=== PATIENT | female | born 1955 | race Caucasian/White ===

== ENCOUNTER → 2022-08-24 15:27 | Outpatient (BNVA) | payer OTHER, SELFPAY | PROVIDERS: Visit Provider Physician Assistant | DX: S39.012A Strain of muscle, fascia and tendon of lower back, initial encounter (principal); X50.0XXA Overexertion from strenuous movement or load, initial encounter | CPT/HCPCS: 99203 ==

== ENCOUNTER → 2022-09-08 14:32 | Outpatient (BNVA) | payer OTHER, SELFPAY | PROVIDERS: Visit Provider Physician Assistant | DX: S39.012D Strain of muscle, fascia and tendon of lower back, subsequent encounter (principal); X58.XXXD Exposure to other specified factors, subsequent encounter; M79.604 Pain in right leg | CPT/HCPCS: 99213 ==

== ENCOUNTER → 2022-09-29 09:13 | Outpatient (BNVA) | payer OTHER, SELFPAY | PROVIDERS: Visit Provider Physician Assistant | DX: S39.012D Strain of muscle, fascia and tendon of lower back, subsequent encounter (principal); X58.XXXD Exposure to other specified factors, subsequent encounter; R53.1 Weakness | CPT/HCPCS: 99213 ==

== ENCOUNTER → 2022-10-20 14:02 | Outpatient (BNVA) | payer OTHER, SELFPAY | PROVIDERS: Visit Provider Physician Assistant | DX: S39.012D Strain of muscle, fascia and tendon of lower back, subsequent encounter (principal); X50.0XXD Overexertion from strenuous movement or load, subsequent encounter; R53.1 Weakness | CPT/HCPCS: 99213 ==

== ENCOUNTER → 2022-11-17 14:04 | Outpatient (BNVA) | payer OTHER, SELFPAY | PROVIDERS: Visit Provider Physician Assistant | DX: S39.012D Strain of muscle, fascia and tendon of lower back, subsequent encounter (principal); X50.0XXD Overexertion from strenuous movement or load, subsequent encounter | CPT/HCPCS: 99213 ==

== ENCOUNTER → 2023-11-01 13:14 | Outpatient (BNVA) | payer OTHER, SELFPAY | PROVIDERS: Visit Provider Physician Assistant Medical | DX: S39.012A Strain of muscle, fascia and tendon of lower back, initial encounter (principal); S63.591A Other specified sprain of right wrist, initial encounter; X50.1XXA Overexertion from prolonged static or awkward postures, initial encounter | CPT/HCPCS: 29125; 99202 ==

== ENCOUNTER → 2023-11-08 10:00 | Outpatient (BNVA) | payer OTHER, SELFPAY | PROVIDERS: Visit Provider Physician Assistant | DX: S39.012A Strain of muscle, fascia and tendon of lower back, initial encounter (principal); S63.511A Sprain of carpal joint of right wrist, initial encounter; X58.XXXA Exposure to other specified factors, initial encounter | CPT/HCPCS: 99213 ==

== ENCOUNTER → 2023-11-28 13:30 | Outpatient (BNVA) | payer OTHER, SELFPAY | PROVIDERS: Visit Provider Physician Assistant Medical | DX: S39.012A Strain of muscle, fascia and tendon of lower back, initial encounter (principal); S63.591A Other specified sprain of right wrist, initial encounter; X50.1XXA Overexertion from prolonged static or awkward postures, initial encounter | CPT/HCPCS: 99213 ==

== ENCOUNTER → 2024-06-30 09:48 | Outpatient (BNVA) | payer OTHER, SELFPAY | PROVIDERS: Visit Provider Physician Assistant Medical | DX: S46.912A Strain of unspecified muscle, fascia and tendon at shoulder and upper arm level, left arm, initial encounter (principal); X50.3XXA Overexertion from repetitive movements, initial encounter | CPT/HCPCS: 73030; 99203 ==

== ENCOUNTER → 2024-07-18 13:59 | Outpatient (BNVA) | payer OTHER, SELFPAY | PROVIDERS: Visit Provider Physician Assistant Medical | DX: M24.812 Other specific joint derangements of left shoulder, not elsewhere classified (principal); M70.812 Other soft tissue disorders related to use, overuse and pressure, left shoulder | CPT/HCPCS: 99213 ==

== ENCOUNTER → 2024-08-22 13:43 | Outpatient (BNVA) | payer OTHER, SELFPAY | PROVIDERS: Visit Provider Physician Assistant Medical | DX: M24.812 Other specific joint derangements of left shoulder, not elsewhere classified (principal); M70.812 Other soft tissue disorders related to use, overuse and pressure, left shoulder | CPT/HCPCS: 99213 ==

== ENCOUNTER 2024-09-09 09:57 | Outpatient (REF) | payer OTHER, SELFPAY ==
--- NOTE | ~2024-09-09 | MR_ITS ---
CLINICAL HISTORY: LEFT SHOULDER DERANGEMENT MR left shoulder without gadolinium Comparison: None Findings: No acute fracture or pathologic bone lesion. Mild glenohumeral and moderate acromioclavicular joint osteoarthritis. Type II acromion. No joint effusion. Mild T2 signal elevation diffusely throughout the supraspinatus and infraspinatus tendons at the humeral insertion site extending to the musculotendinous junction, indicating tendinopathy. Superimposed low-grade partial-thickness intrasubstance, bursal surface and articular surface tears of the anterior, mid, and posterior supraspinatus as well as the anterior infraspinatus tendon at the humeral insertion site. Subscapularis and teres minor tendons are intact. No rotator cuff atrophy. The long head of biceps is intact. Degenerative fraying of the glenoid labrum. IMPRESSION: 1. Supraspinatus and infraspinatus tendinopathy with superimposed low-grade tears. No full-thickness rotator cuff tear. 2. Acromioclavicular and glenohumeral joint osteoarthritis. Degenerative fraying of the glenoid labrum. This document has been electronically signed by: Adam Drummond MD on 09/10/2024 14:44:41
--- OUTSIDE RECORDS SUMMARY | 2024-09-09 11:30 | XMS_ITS | Data Portability ---
Author Organization [facility] Address [address] [place] [address] Care Team Providers Care Personnel Adviser Name Role Phone CAROLINA CERNA REHAB Physical Therapist KERLINE MICHAELS Junior Project Coordinator AMADEO ORTEZ Refinery Operator Visbreaking [phone] KIMBERLY LAM Technical Sales Consultant ELVIS ADLER Profile Saw Setup Operator BLANK GALVIN Sports Medicine RILEY DANIEL Primary Care Provider PRANEETH IYER Marksmanship Instructor Assessment Encounter Date Assessment Date Assessment LastModified by Organization Details LastModified Time 08/12/2024 08/12/2024 We reviewed your chronic medical conditions and updated your plan for management. Please review instructions below. We have discussed your personal goals and discussed how to reach your goals. Please reach out to us via the Portal or phone if you have questions about your chronic conditions or if you or your caregivers require assistance in meeting your goals. Please visit our website [email or web address] for more patient resources. As part of your care plan, we will help coordinate your ongoing medical needs, arrange for durable medical equipment, renew prescriptions and necessary prior authorizations, facilitate getting referrals and collaborating with specialist, referrals for VNA services. CCM discussed and signed. General Health Maintenance Did not receive flu vaccine this year, possibly contributing to recent viral illness. - Recommend flu vaccination in future seasons. Follow-up Follow-up post-eye surgery to discuss diabetes management and further interventions. - Schedule follow-up appointment post-eye surgery to initiate Ozempic and reassess diabetes management. Not available 08/12/2024 13:44:03 08/16/2024 08/16/2024 flu positive > 1.5 week ago with ongoing cough. Rule out post-viral PNA. Not available 08/16/2024 12:17:24 Plan of Treatment Reminders Order Date Submit Date Provider Last Modified By Organization Details Last Modified Time Details Appointments Medica l Manage ment 15 2024 03:00P M RILEY DANIEL, DO Not available Not available Not available [facility] t-60 2024 11:00A M Rupinder Sanchezil, RDN Not available Not available Not available Follow Up, 2024 04:30P M RILEY DANIEL, DO Not available Not available Not available Mammog mejia, Screen ing 2024 03:30P M [facility] Mammography Not available Not available Not available LAB Follow -Up 2024 10:00A M [facility] Lab Not available Not available Not available Lynette ss Visit 2024 11:00A M RILEY ADNIEL, DO Not available Not available Not available Lab microa lbumin /creat inine, ratio panel, urine 2024 [email or web address] [place] [address] Lab, [address] [place], [address], 08/25/2024 15:28:39 HbA1c (hemog lobin A1c), blood 2023 025 [facility], [address] [place], [address], 07/04/2024 12:22:39 Referral nutrit ionist /dieti true referr al - T2DM. Strugg ling with weight gain. 2024 025 [facility], Nutrition ([place]) , [address] [place], [address], 08/06/2024 10:28:28 Procedures None record ed. Surgeries None record ed. Imaging XR, chest - flu positi ve > 1 week ago with ongoin g cough. Rule out post-v iral PNA [address] (Imaging), [address], [place], [address], 08/12/2024 13:23:22 Medication Orders doxycy russo hyclat e 100 mg capsul e 2024 025 MEGHANN Melchor ([facility]), [address] [place], [id number], 08/16/2024 10:58:36 albute rol sulfat e HFA 90 mcg/ac tuatio n aeroso l inhale r 2024 025 [facility] [address] [facility] [place] [id number], 08/16/2024 10:58:34 FreeSt yle Lite Strips 2023 024 MEGHANN Melchor ([facility]), [address] [place], [id number], 12/31/2023 11:05:13 Alcoho l Wipes 2023 024 MEGHANN Melchor ([facility]), [address] [facility] [place] [id number], 12/31/2023 11:05:15 metfor min ER 500 mg tablet ,exten ded releas e 24 hr 2023 024 MEGHANN [facility]chor ([facility] [address] [place], [id number], 12/21/2023 16:39:03 Patient TargetsNo targets recorded. Patient Instructions Encounter Date Encounter Id Patient Instructions Last Modified By Organization Details Last Modified Time 12/21/2023 [id number] After a discussi on of treatment options, which included consideration of best practices, patient preferences, and the patient? s individual lifestyle and treatment goals, as well as consideration and attempted mitigation of any barriers to meeting the patient? s goals, the? ? ?above treatment plan and objectives were adopted: bgreen Not available 12/22/2023 08:00:50 08/12/2024 [id number] CCM: The provide r and patient discussed the Chronic Care Management program, including the services provided, and any fees associated with them. 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 Struggling with weight gain. T2DM. Struggling with weight gain. Referring Physician: Riley Daniel, Family Medicine, Encounter Date: 07/07/2024 Results Created Date Observation Date Name Description Value Unit Range Abnormal Flag Note LastModifiedBy Organization Detail LastModifiedTime 07/04/1907/04/2024 CBC WBC 7.19 K/? ? ?L 3.98-1 0.04 Not Available [address], [address], 07/04/2024 10:27:26 07/04/19 25 07/04/2024 CBC RBC 4.35 M/? ? ?L 3.93-5 .22 Not Available [address], [address], 07/04/2024 10:27:26 07/04/19 25 07/04/2024 CBC HGB 14.3 g/dL 11.2-1 5.7 Not Available [address], [address], 07/04/2024 10:27:26 07/04/19 25 07/04/2024 CBC HCT 43.3 % 34.1-4 4.9 Not Available [address], [address], 07/04/2024 10:27:26 07/04/19 25 07/04/2024 CBC MCV 99.5 fL 79.4-9 4.8 high Not Available [address], [address], 07/04/2024 10:27:26 07/04/19 25 07/04/2024 CBC MCH 32.9 pg 25.6-3 2.2 high Not Available [address], [address], 07/04/2024 10:27:26 07/04/19 25 07/04/2024 CBC MCHC 33.0 g/dL 32.2-3 5.5 Not Available [address], [address], 07/04/2024 10:27:26 07/04/19 25 07/04/2024 CBC plt 201 K/? ? ?L 182-36 9 Not Available [address], [address], 07/04/2024 10:27:26 07/04/19 25 07/04/2024 CBC MPV 12.0 fL 9.4-12 .3 Not Available [address], [address], 07/04/2024 10:27:26 07/04/19 25 07/04/2024 CBC neut% 56.5 % 34.0-7 1.1 Not Available [address], [address], 07/04/2024 10:27:26 07/04/19 25 07/04/2024 CBC neut# 4.06 1.56-6 .13 Not Available [address], [address], 07/04/2024 10:27:26 07/04/19 25 07/04/2024 CBC lymph % 31.4 % 19.3-5 1.7 Not Available [address], [address], 07/04/2024 10:27:26 07/04/19 25 07/04/2024 CBC lymph # 2.26 K/? ? ?L 1.18-3 .74 Not Available [address], [address], 07/04/2024 10:27:26 07/04/1907/04/2024 CBC mono% 7.8 % 4.7-12 .5 Not Available [address], [address], 07/04/2024 10:27:26 07/04/1907/04/2024 CBC mono# 0.56 0.24-0 .56 Not Available [address], [address], 07/04/2024 10:27:26 07/04/1907/04/2024 CBC eo% 2.9 % 0.7-5. 8 Not Available [address], [address], 07/04/2024 10:27:26 07/04/1907/04/2024 CBC eo# 0.21 0.04-0 .36 Not Available [address], [address], 07/04/2024 10:27:26 07/04/19 25 07/04/2024 CBC baso% 1.1 % 0.1-1. 2 Not Available [address], [address], 07/04/2024 10:27:26 07/04/1907/04/2024 CBC baso# 0.08 0.00-0 .08 Not Available [address], [address], 07/04/2024 10:27:26 07/04/19 25 07/04/2024 CBC RDW-CV 12.7 % 11.7-1 4.4 Not Available [address], [address], 07/04/2024 10:27:26 07/04/1907/04/2024 CBC Ig% 0.300 % 0.000- 1.500 Ig % >0.5 Indic ates possi ble Left Shift Not Available [address], [address], 07/04/2024 10:27:26 07/04/19 25 07/04/2024 CBC Ig# 0.020 0.000- 0.093 Not Available [address], [address], 07/04/2024 10:27:26 07/04/19 25 07/04/2024 CBC NRBC% 0.0 % 0.0-0. 2 Not Available [address], [address], 07/04/2024 10:27:26 07/04/19 25 07/04/2024 CBC NRBC# 0.000 0.000- 0.012 Not Available [address], [address], 07/04/2024 10:27:26 07/04/19 25 07/04/2024 COMP. METAB OLIC PANEL glucose 145 mg/dL 70-100 high Not Available [address], [address], 07/04/2024 11:14:57 07/04/19 25 07/04/2024 COMP. METAB OLIC PANEL BUN 16 mg/dL 7-18 Not Available [address], [address], 07/04/2024 11:14:57 07/04/19 25 07/04/2024 COMP. METAB OLIC PANEL creatinine 0.8 mg/dL 0.8-1. 3 Not Available [address], [address], 07/04/2024 11:14:57 07/04/19 25 07/04/2024 COMP. METAB OLIC PANEL B/C 20.0 ratio Not Available [address], [address], 07/04/2024 11:14:57 07/04/19 25 07/04/2024 COMP. METAB OLIC PANEL GFR >=60ML /MIN mL/mi n normal >=60m L/min - Belia l or midly reduc ed <60mL /min- Decre ased kidne y funct ion <15mL /min - Kidne y failu re [facility] calcu lates estim ated Glome rular Filtr ation Rate (eGFR ) using the Chron ic Kidne y Disea se Epide miolo gy Colla borat ion (CKD- EPI) Equat ion (Inke r et. al 2020) as recom belkis d by the Natio nal Kidne y Found ation . eGFR is based on age, serum creat inine , and sex. CKD-E PI does not calcu late eGFR by race, does not apply to child jakub (age <18 years ), and shoul d not be used in pregn johnnie. Not Available [address], [address], 07/04/2024 11:14:57 07/04/19 25 07/04/2024 COMP. METAB OLIC PANEL sodium 143 mmol/ L 136-14 5 Not Available [address], [address], 07/04/2024 11:14:57 07/04/19 25 07/04/2024 COMP. METAB OLIC PANEL potassium 4.7 mmol/ L 3.5-5. 1 Not Available [address], [address], 07/04/2024 11:14:57 07/04/19 25 07/04/2024 COMP. METAB OLIC PANEL chloride 104 mmol/ L 96-107 Not Available [address], [address], 07/04/2024 11:14:57 07/04/19 25 07/04/2024 COMP. METAB OLIC PANEL anion gap 14.0 5.0-15 .0 Not Available [address], [address], 07/04/2024 11:14:57 07/04/19 25 07/04/2024 COMP. METAB OLIC PANEL CO2 25 mmol/ L 21-32 Not Available [address], [address], 07/04/2024 11:14:57 07/04/19 25 07/04/2024 COMP. METAB OLIC PANEL calcium 8.8 mg/dL 8.5-10 .3 Not Available [address], [address], 07/04/2024 11:14:57 07/04/19 25 07/04/2024 COMP. METAB OLIC PANEL total protein 7.1 g/dL 6.4-8. 2 Not Available [address], [address], 07/04/2024 11:14:57 07/04/19 25 07/04/2024 COMP. METAB OLIC PANEL albumin 3.8 g/dL 3.4-5. 0 Not Available [address], [address], 07/04/2024 11:14:57 07/04/19 25 07/04/2024 COMP. METAB OLIC PANEL globulin 3.3 g/dL Not Available [address], [address], 07/04/2024 11:14:57 07/04/19 25 07/04/2024 COMP. METAB OLIC PANEL A/G 1.2 ratio 0.8-2. 0 Not Available [address], [address], 07/04/2024 11:14:57 07/04/19 25 07/04/2024 COMP. METAB OLIC PANEL total bilirubin 0.40 mg/dL 0.00-1 .00 Not Available [address], [address], 07/04/2024 11:14:57 07/04/19 25 07/04/2024 COMP. METAB OLIC PANEL AST 17 U/L 0-37 Not Available [address], [address], 07/04/2024 11:14:57 07/04/19 25 07/04/2024 COMP. METAB OLIC PANEL ALT 33 U/L 6-63 Not Available [address], [address], 07/04/2024 11:14:57 07/04/19 25 07/04/2024 COMP. METAB OLIC PANEL alk. phos. 57 U/L 50-136 Not Available [address], [address], 07/04/2024 11:14:57 07/04/19 25 07/04/2024 LIPID PANEL cholesterol 183 mg/dL <200 mg/dl Roland able 200-2 39 mg/dl Borde rline High >240 mg/dl High Not Available [address], [address], 07/04/2024 11:14:57 07/04/1907/04/2024 LIPID PANEL triglyceride s 183 mg/dL <150 mg/dL Belia l 150-1 99 mg/dL Borde rline High 200-4 99 mg/dL High >500 mg/dL Very High Not Available [address], [address], 07/04/2024 11:14:57 07/04/1907/04/2024 LIPID PANEL direct HDL 48 mg/dL <40 mg/dl - Major Risk for CHD >60 mg/dl - Negat francisco Risk for CHD Not Available [address], [address], 07/04/2024 11:14:57 07/04/19 25 07/04/2024 LDL - CALCU LATED LDL - calculated 98 RISK CATEG ORY LDL GOAL _ CHD or CHD Risk Equiv alent s <100 mg/dl (10-y ear risk >20%) 2+ Risk Facto rs <130 mg/dl (10-y ear risk <= 20%) 0-1 Risk Facto r? <160 mg/dl ? Almos t all peopl e with 0-1 risk facto r have a 10 year risk <10%, thus 10 year risk asses ment in peopl e with 0-1 risk facto r is not neces alexsandra. Not Available [address], [address], 07/04/2024 11:14:58 07/04/19 25 07/04/2024 HGB A1C hemoglobin A1C 6.0 % 4.8-6. 0 Goal: <7% in Patie nts with Diabe jacky An A1c betwe en 5.7-6 .4% is ident ified as pre-d iabet es and sugge sts risk for progr essio n to diabe jacky Two a1c value s of 6.5% or highe r is consi stent with a diagn osis of diabe jacky but may need furth er confi rmati on Not Available [address], [address], 07/04/2024 12:22:39 07/04/19 25 07/04/2024 HGB A1C estimated average glucose 125.5 mg/dL Not Available [address], [address], 07/04/2024 12:22:39 08/12/19 25 08/12/2024 XR, chest CLINIC AL HISTOR Y: Cough. TECHNI QUE: Fronta l view and latera l view of the chest obtain ed. COMPAR DON: November 16, 2015 FINDIN GS: The heart is normal in size and config uratio n.Ther e is no hilar or medias tinal enlarg ement. There is no focal lung consol idatio n or infilt rate. The bony thorax is intact . IMPRES SWAPNIL: No acute diseas e. Readtete g Physic cindy: Jayesh Kirkpatrick [address] (Imaging) [address] , [place], [address], 09/09/2024 08:29:59 Result Notes None recorded. Problems Name Problem SNOMED Code Status Onset Date Resolution Date Notes Provider Name and Address Organization Details Recorded Time Joint pain 20798387 Active 2017 Tanika Delacruz NP [address] [place], [address] , [facility] 8 08:17:43 Osteoarthr itis 116065428 Active 2018 Chantal Parmar MA [facility] 9 08:20:18 Type 2 diabetes mellitus 64981770 Active 2023 Tanika Delacruz NP [address] [place] [address], [address] , [facility] 4 16:34:30 Dyspnea 767973105 Completed 200207/25/2012 Not Available [facility] 3 03:10:02 Calcific tendinitis of shoulder 46463631 Completed 200207/25/2012 Not Available [facility] 3 03:10:02 Acute cystitis 72151148 Completed 200307/25/2012 Not Available [facility] 3 03:10:02 Allergic rhinitis 24925317 Completed 200107/25/2012 Not Available [facility] 3 03:10:02 Acute pharyngiti s 582882189 Completed 200107/25/2012 Not Available [facility] 3 03:10:02 Glucose level outside reference range 189604023 Completed 200407/25/2012 Not Available [facility] 3 03:10:02 Dizziness 441693005 Completed 200407/25/2012 Not Available [facility] 3 03:10:02 Bacterial pneumonia 05382408 Completed 200707/25/2012 Not Available [facility] 3 03:10:02 Hypermetro afia 60985642 Completed 200507/25/2012 Not Available [facility] 3 03:10:02 Pain in throat 183066240 Completed 200607/25/2012 Not Available [facility] 3 03:10:02 Pneumonia 769460835 Completed 200207/25/2012 Not Available [facility] 3 03:10:02 Joint pain 87771242 Completed 200207/25/2012 Tanika Delacruz NP [address] [place] [address], [address] , [facility] 8 08:17:43 Acute maxillary sinusitis 01146924 Completed 200107/25/2012 Not Available [facility] 3 03:10:02 Transient insomnia 639012975 Completed 200707/25/2012 Not Available [facility] 3 03:10:02 Borderline glaucoma Completed 200507/25/2012 Not Available [facility] 3 03:10:02 Acute bronchitis 04403652 Completed 200207/25/2012 Not Available [facility] 3 03:10:02 Malaise and fatigue 031094167 Completed 200207/25/2012 Not Available [facility] 3 03:10:02 Inflammato ry disorder of extremity 596660848 Completed 200007/25/2012 Not Available [facility] 3 03:10:02 Disorder of tendon of shoulder region 31879944 Completed 200207/25/2012 Not Available [facility] 3 03:10:02 Cough 87237331 Completed 200107/25/2012 Not Available [facility] 3 03:10:02 Plantar fasciitis 816603717 Completed 200007/25/2012 Not Available [facility] 3 03:10:02 Syncope and collapse 892323562 Completed 200707/25/2012 Not Available [facility] 3 03:10:02 Joint pain in ankle and foot Completed 200307/25/2012 Not Available [facility] 3 03:10:02 Obesity 317761758 Active 2007 Elvis Adler MD [address] [place] [address], [address] , [facility] 6 15:23:56 Finding by method 839304912 Completed 200407/25/2012 Not Available [facility] 3 03:10:02 Common cold 91175247 Completed 200307/25/2012 Not Available [facility] 3 03:10:02 Staphyloco ccal infectious disease 18563874 Completed 200607/25/2012 Not Available [facility] 3 03:10:02 Abnormal weight loss 481787798 Completed 200707/25/2012 Not Available [facility] 3 03:10:02 Insect bite to trunk - nonvenomou s 697242075 Completed 200707/25/2012 Not Available [facility] 3 03:10:02 Insect bite, nonvenomou s, of shoulder 876864569 Completed 07/25/2012 Not Available [facility] 3 03:10:02 Low back pain 410697084 Completed 200007/25/2012 Not Available [facility] 3 03:10:02 Hypothyroi dism 84061043 Active 2002 Elvis Adler MD [address] [place] [address], [address] , [facility] 6 15:23:56 Streptococ anna sore throat 90063625 Completed 200307/25/2012 Not Available [facility] 3 03:10:02 Pain in limb 60928759 Completed 200307/25/2012 Not Available [facility] 3 03:10:02 Viral upper respirator y tract infection 806955297 Completed 200607/25/2012 Not Available [facility] 3 03:10:02 Notes:Some problems listed i n Documents: #[id number], #[id number] could not be added to this patient's chart. Please review these documents and add these problems to the patient's chart manually as needed. Problem Notes None recorded. Procedures Surgical History Date Name Laterality Status Provider Name and Address Organization Details Recorded Time 10/08/19 24 Trochanteric Bursa Injection completed Blank Galvin MD [address] [place] [address], [phone], [facility] 10/08/2023 16:17:42 01/11/20 23 Trochanteric Bursa Injection completed Blank Galvin MD [address] [place] [address], [address], [facility] 01/10/2023 16:12:59 12/16/19 23 Medicare Wellness Visit completed Ron Azul MA [facility] 12/15/2022 09:01:17 12/15/19 23 US Guided Knee Joint Injection completed Blank Galvin MD [address] [place] [address], [address], [facility] 12/14/2022 13:36:30 04/07/20 22 Tassoni - Colonoscopy completed Amadeo Ortez MD [address] [place] [address], [address], [facility] 04/07/2022 12:22:37 04/07/20 22 Tassoni - EGD completed Amadeo Ortez MD [address] [place] [address], [address], [facility] 04/07/2022 12:21:41 11/26/19 22 prevention-cardi ovascular risk reduction counseling completed Tanika Delacruz NP [address] [place] [address], [address], [facility] 11/25/2021 16:50:47 11/26/19 22 prevention-annua l alcohol misuse screening completed Tanika Delacruz NP [address] [place] [address], [address], [facility] 11/25/2021 16:50:50 08/08/19 22 15[address]: Therapeutic Exercise completed Shawna Parker, BROOK [address] [place] [address], [address], [facility] 08/08/2021 18:36:17 08/08/19 22 Treatment and Advice completed Shawna Parker, PT [address] [place], [address], [facility] 08/08/2021 18:33:10 08/05/19 22 Physical Activity Counselling completed Shawna Parker, PT [address] [place], [address], [facility] 08/05/2021 08:21:28 08/05/19 22 [address]: PT Eval Low Complexity completed Shawna Parker, PT [address] [place], [address], [facility] 08/05/2021 08:21:24 08/05/19 22 Treatment and Advice completed Shawna Parker, PT [address] [place], [address], [facility] 08/05/2021 16:39:59 08/26/19 21 prevention-cardi ovascular risk reduction counseling completed Ron Azul MA [facility] 08/26/2020 08:39:25 08/26/19 21 prevention-annua l alcohol misuse screening completed Ron Azul MA [facility] 08/26/2020 08:39:25 03/29/20 18 [address]61: Therapeutic Exercise completed Nelson Devi, PT [address] [place], [address], [facility] 04/03/2018 19:36:37 03/29/20 18 Treatment and Advice completed Nelson Devi, PT [address] [place], [address], [facility] 03/29/2018 17:09:53 03/22/20 18 [address]23: Therapeutic Exercise completed Nelson Devi, PT [address] [place], [address], [facility] 03/22/2018 15:37:32 03/22/20 18 Treatment and Advice completed Nelson Devi, PT [address] [place], [address], [facility] 03/22/2018 16:02:03 03/08/20 18 53619: Therapeutic Exercise completed Nelson Devi, PT [address] [place], [address], [facility] 03/08/2018 16:57:34 03/08/20 18 Treatment and Advice completed Nelson Devi, PT [address] [place], [address], [facility] 03/08/2018 16:59:44 03/01/20 18 [address]: Therapeutic Exercise completed Nelson Devi, PT [address] [place], [address], [facility] 03/04/2018 17:17:06 03/01/20 18 Treatment and Advice completed Nelson Devi, PT [address] [place], [address], [facility] 03/01/2018 16:41:51 02/20/20 18 Physical Activity Counselling completed Nelson Devi, PT [address] [place], [address], [facility] 02/19/2018 09:35:29 02/20/20 18 71951: PT Eval Low Complexity completed Nelson Devi, PT [address] [place], [address], [facility] 02/19/2018 09:35:29 02/20/20 18 Treatment and Advice completed Nelson Devi, PT [address] [place], [address], [facility] 02/19/2018 10:07:34 07/12/19 17 POC Strep Testing completed Lotus Howell MA [facility] 07/12/2016 11:14:53 06/22/20 15 Refraction completed Aviva Garcia MA [facility] 06/22/2015 16:17:57 Imaging Results Imaging Date Name Status LastModified by [facility] Details LastModified Time 08/12/2024 XR, chest completed [address] (Imaging) [address], [place], [address], 09/09/2024 08:29:59 Procedure Notes None recorded. Medical Equipment None Reported. Allergies Allergen ID Allergen Name Allergen Category Reaction Reaction Severity Criticality Documentation Date Start Date Code Code System Note Provider Name and Address Organization Details Recorded Time 535625 Roxicet medicatio n Not available Not available Not available 11/17/2022 89581 9 RxNorm think s it cause d her to go deaf Gonzalezjimi Azul MA [facility] 3 15:37:59 8644 Product containin g penicilli n (product) medicatio n rash Not available Not available 10/13/2008 89614 8001 SNOMED Not Available [facility] 1 06:05:20 Medications Name Sig Start Date Stop Date Status Note LastModified by Organization Details LastModified Time synthroid 75 mcg tabs 07/24 completed Not Available Not Available Not Available celecoxib 200 mg caps 07/24 completed Not Available Not Available Not Available lorazepam 0.5 mg tabs 07/24 completed Not Available Not Available Not Available doxycycli ne monohydra te 100 mg caps 08/26 completed Not Available Not Available Not Available celecoxib 200 mg capsule TK 1 C PO QD PRN 08/26 completed Not Available Not Available Not Available doxycycli ne hyclate 100 mg capsule TAKE 1 CAPSULE BY MOUTH TWICE DAILY FOR 7 DAYS active Not Available Not Available No t Available azithromy kathe 250 mg tablet Take 2 tablets (500 mg) by oral route once daily for 1 day then 1 tablet (250 mg) by oral route once daily for 4 days 05/02 completed Not Available Not Available Not Available ibuprofen 800 mg tablet TAKE ONE TABLET BY MOUTH THREE TIMES DAILY FOR 30 DAYS NEEDED 2012 active Not Available Not Available Not Avai lable Tubersol 5 tub. unit/0.1 mL intraderm al injection solution 2009 active Not Available Not Available Not Avai lable phentermi ne 15 mg capsule TAKE 1 CAPSULE BY MOUTH ONCE DAILY active Not Available Not Available No t Available topiramat e 25 mg tablet Take 1 tablet every day by oral route. 09/20 completed Not Available Not Available Not Available Cyclogyl 1 % eye drops INSTILL 1 DROP INTO AFFECTED EYE(S) 2X A DAY 11/17 completed Not Available Not Available Not Available phentermi ne 37.5 mg tablet TAKE 1 TABLET BY MOUTH EVERY DAY active Not Available Not Available No t Available melatonin 3 mg tablet Take 1 tablet every day by oral route at bedtime. 05/02 completed 05/02/16 dose was increade d to 5mg/jacqueline Not Available Not Available Not Available valacyclo vir 500 mg tablet TAKE 1 TABLET BY MOUTH THREE TIMES DAILY 06/15 completed Not Available Not Available Not Available Roxicet 5 mg-325 mg tablet Take 1-2 po q 6 hours prn 2012 active Not Available Not Available Not Avai lable levothyro xine 75 mcg tablet TAKE 1 TABLET BY MOUTH EVERY DAY active Not Available Not Available No t Available ketorolac 0.5 % eye drops PLACE 1 DROP INTO LEFT EYE THREE TIMES DAILY FOR 3 WEEKS FOLLOWIN G CATARACT SURGERY active Not Available Not Available No t Available meloxicam 7.5 mg tablet Take 1 tablet every day by oral route. active Not taking 08/12/24 PP Not Available Not Available Not Available diflunisa l 500 mg tablet Take 1 tablet every 12 hours by oral route. active 04/23/15 -rb Not Available Not Available Not Available prednisol one acetate 1 % eye drops,anita pension INSTILL 1 DROP IN LEFT EYE THREE TIMES DAILY FOR 3 WEEKS FOLLOWIN G CATARACT SURGERY active Not Available Not Available No t Available omeprazol e 10 mg capsule,d elayed release Take 2 capsules every day by oral route. active unsure of dose Not Available Not Available Not Available lorazepam 0.5 mg tablet TAKE 1 TABLET BY MOUTH EVERY DAY NEEDED active Not Available Not Available No t Available doxycycli ne monohydra te 100 mg capsule TK 1 C PO Q 12 H FOR 7 DAYS 08/26 completed Not Available Not Available Not Available lisinopri l 10 mg tablet TAKE 1 TABLET BY MOUTH EVERY DAY active Not Available Not Available No t Available prednison e 50 mg tablet TAKE 1 TABLET BY MOUTH DAILY. START 1 DAY BEFORE SURGERY THEN FOR 5 DAYS AFTER SURGERY active Not Available Not Available No t Available dorzolami de 22.3 mg-timolo l 6.8 mg/mL eye drops INSTILL 1 DROP IN BOTH EYES TWICE DAILY active Not Available Not Available No t Available ibuprofen 600 mg tablet Take 1 tablet 3 times a day by oral route. 08/10 completed Not Available Not Available Not Available albuterol sulfate HFA 90 mcg/actua tion aerosol inhaler INHALE 2 PUFFS BY MOUTH EVERY 4 TO 6 HOURS FOR 10 DAYS NEEDED active Not Available Not Available No t Available metformin ER 500 mg tablet,ex tended release 24 hr TAKE 1 TABLET BY MOUTH EVERY DAY FOR 7 DAYS THEN TAKE 2 TABLETS BY MOUTH EVERY DAY IN THE EVENING THEREAFT ER active Not Available Not Available No t Available metronida zole 0.75 % topical gel 08/26 completed Not Available Not Available Not Available naproxen 500 mg tablet TAKE 1 TABLET BY MOUTH TWICE DAILY active Not taking 08/12/24 PP Not Available Not Available Not Available cyclobenz aprine 5 mg tablet TAKE 1 TABLET BY MOUTH AT BEDTIME NEEDED FOR MUSCLE SPASM. DO NOT DRIVE OR OPERATE MACHINER Y FOR 8 HOURS AFTER TAKING THIS MEDICINE 12/20 completed Not Available Not Available Not Available Alcohol Prep Pads Use twice daily as directed for monitori ng glucose, Dx Code E11.9 active Not Available Not Available No t Available melatonin take 10mg daily active 09/01/22- takes 5 mg Not Available Not Available Not Available Naprosyn 06/19 completed 1-2 tabs po bid Not Available Not Available Not Available Celebrex 1 tab PO QD active pt cannot recall dosage Not Available Not Available Not Available metformin ER 500 mg 24 hr tablet,ex tended release (gastric retention ) TAKE 1 TABLET BY MOUTH EVERY DAY FOR 7 DAYS THEN TAKE 2 TABLETS BY MOUTH EVERY DAY IN THE EVENING THEREAFT ER 2023 active Not Available Not Available Not Avai lable FreeStyle Lite Strips Use twice daily as directed for monitori ng glucose, Dx Code E11.9 2023 active Not Available Not Available Not Avai lable diclofena c 1 % topical gel APPLY 2 GRAMS TOPICALL Y TO THE AFFECTED AREA FOUR TIMES DAILY 08/12 completed Not Available Not Available Not Available GaviLyte- G 236 gram-22.7 4 gram-6.74 gram-5.86 gram oral solution MIX AND DRINK UTD 11/02 completed Not Available Not Available Not Available Belviq 10 mg tablet TK 1 T PO BID 05/02 completed 05/02/16 pt states she is no longer taking/j d Not Available Not Available Not Available Virtussin AC 10 mg-100 mg/5 mL oral liquid Take 10 mL every 8 hours by oral route as needed. 05/02 completed Not Available Not Available Not Available Fluarix Quad 7259-9577 (PF) 60 mcg (15 mcg x 4)/0.5 mL IM syringe inject 0.5 millilit er intramus cularly 05/02 completed Not Available Not Available Not Available Afluria [id number] (PF) 45 mcg(15 mcg x 3)/0.5 mL intramusc ular syringe 08/10 completed Not Available Not Available Not Available Vitals Date Recorded Body height Body mass index (BMI) Body weight Oxygen saturation Oxygen saturation in Arterial blood by Pulse oximetry Heart rate Systolic blood pressure Diastolic blood pressure Provider Name and Address Organization Details Last Updated DateTime 4 162.56 cm 34.2 kg/m2 84516.2 8 g 97 % 97 % 61 /min 116 mm[Hg] 66 mm[Hg] Ron Azul [facility] 4 16:19:09 Date Recorded Heart rate Systolic blood pressure Diastolic blood pressure Provider Name and Address Organization Details Last Updated DateTime 12/31/2023 74 /min 154 mm[Hg] 96 mm[Hg] Amanda De Santiago CMA [facility] 12/31/2023 11:15:59 Date Recorded Body temperature Systolic blood pressure Diastolic blood pressure Provider Name and Address Organization Details Last Updated DateTime 12/31/2023 99.8 [degF] 142 mm[Hg] 95 mm[Hg] MALATHI Seymour [address] [place] [address], [id number], [facility] 12/31/2023 11:55:33 Date Recorded Body height Body mass index (BMI) Body weight Oxygen saturation Oxygen saturation in Arterial blood by Pulse oximetry Heart rate Systolic blood pressure Diastolic blood pressure Provider Name and Address Organization Details Last Updated DateTime 5 162.56 cm 34.8 kg/m2 46735.4 6 g 97 % 97 % 66 /min 110 mm[Hg] 70 mm[Hg] Kortney Justin [facility] 5 11:49:51 Date Recorded Body height Body mass index (BMI) Body weight Heart rate Oxygen saturation Oxygen saturation in Arterial blood by Pulse oximetry Body temperature Systolic blood pressure Diastolic blood pressure Provider Name and Address Organization Details Last Updated DateTime 5 162.56 cm 34.8 kg/m2 79281.2 5 g 59 /min 99 % 99 % 98 [degF] 126 mm[Hg] 66 mm[Hg] DELMI Hassan [facility] 5 11:43:17 Date Recorded Body height Oxygen saturation Oxygen saturation in Arterial blood by Pulse oximetry Heart rate Body temperature Systolic blood pressure Diastolic blood pressure Provider Name and Address Organization Details Last Updated DateTime 5 162.56 cm 98 % 98 % 68 /min 97.6 [degF] 102 mm[Hg] 60 mm[Hg] Soy Ricardo [facility] 5 10:40:52 Social History Question Answer Notes LastModified by Organizat ion Details LastModified Time Tobacco Smoking Status [facility] 16:40:50 Do You Have An Advance Directive? Yes Kerline Campbell, Information not available 05/20/2010 What Is Your Level Of Alcohol Consumption? None Information not available 09/01/2022 Do You Wear A Helmet When Biking? Yes Information not available 11/02/2017 What Is Your Level Of Caffeine Consumption? Occasional 1 Cup Coffee Daily Information not available 05/20/2010 How Much Tobacco Do You Chew? None [email or web address] Information not available 05/18/2011 Are You Currently Employed? Yes Information not available 11/25/2021 What Type Of Diet Are You Following? REGULAR Low Fat, No Bread, Sugar, Pasta Information not available 11/25/2021 Which Illicit Or Recreational Drugs Have You Used? None [email or web address] Information not available 08/06/2015 Do You Or Have You Ever Used E-cigarettes Or Vape? Never Used Electronic Cigarettes Information not available 07/24/2019 Education 4 Year College Informatio n not available 11/02/2017 What Is The Highest Grade Or Level Of School You Have Completed Or The Highest Degree You Have Received? [id number] Information not available 12/15/2022 What Is Your Occupation? [employer] [email or web address] Information not available 05/18/2011 Have There Been Any Changes To Your Family Or Social Situation? No Information not available 11/25/2021 How Many Days In The Past Year Have You Had A Heavy Drinking Consumption (4+ Female, 5+ Male)? 0 Information not available 05/02/2016 Are There Any Guns Present In Your Home? No [email or web address] Information not available 05/18/2011 Do You Use Insect Repellent Routinely? Yes Information not available 11/25/2021 Live Alone Or With Others? With Others [email or web address] Information not available 05/18/2011 Patient Has Health Care Proxy Signed And In Chart Yes [email or web address] Information not available 03/15/2023 CCM Consent Discussion 08/12/2024 [email or web address] Information not available 08/21/2024 Marital Status [email or web address] Information not available 05/18/2011 Mosquito Repellent Used Routinely No [email or web address] Information not available 05/18/2011 What Was The Date Of Your Most Recent Tobacco Screening? 07/07/2024 [email or web address] Information not available 07/07/2024 How Many Children Do You Have? 2 [email or web address] Information not available 05/18/2011 What Is Your Relationship Status? Information not available 11/25/2021 Do You Use Your Seat Belt Or Car Seat Routinely? Yes Information not available 11/25/2021 Seat Belts Used Routinely Yes [email or web address] Information not available 05/18/2011 Are You Sexually Active? Yes [email or web address] Information not available 05/18/2011 Smoke Alarm In Home Yes [email or web address] Information not available 05/18/2011 Do You Have Smoke And Carbon Monoxide Detectors In Your Home? Yes Information not available 11/25/2021 Are You Passively Exposed To Smoke? No Information not available 11/25/2021 Do You Or Have You Ever Used Smokeless Tobacco? Never Used Smokeless Tobacco Information not available 07/24/2019 How Much Tobacco Do You Smoke? No Information not available 07/24/2019 What Types Of Sporting Activities Do You Participate In? None Information not available 05/02/2016 General Stress Level High Due To Family Issues Information not available 08/26/2020 Do You Use Any Illicit Or Recreational Drugs? No Information not available 11/30/2022 Do You Use Sunscreen Routinely? Yes Information not available 12/15/2022 Do You Or Have You Ever Used Any Other Forms Of Tobacco Or Nicotine? No Information not available 06/17/2021 Sex: Female Functional Status Question Answer Note LastModified by Organization D etails LastModified Time What is your exercise level? Moderate Information not available 08/12/2024 Mental Status None recorded. Family History Relationship Description Onset Age of this Age Resolved Age Notes LastModified by Organization Details LastModified Time Father Malignant tumor of colon [email or web address] Not available 2015 14:52:13 Father Diabetes mellitus [email or web address] Not available 2015 14:52:13 Brother Malignant tumor of small intestine [email or web address] Not available 2015 14:52:13 Brother Diabetes mellitus [email or web address] Not available 2015 14:52:13 Brother Malignant neoplasm of skin [email or web address] Not available 2015 14:52:13 Sister Polyp of colon [email or web address] Not available 2015 14:52:13 Sister Malignant neoplasm of skin [email or web address] Not available 2015 14:52:13 Notes:colon CA - Dad and sev eral other more distant relatives Medical History Condition Response Hypothyroid Y Gynecological History Statement/Question Response Infertility Date of LMP Obstetrics History GPAL:G 0 P 0 0 0 0 Immunizations Vaccine Type Date Status Note Provider Nam e and Address Organization Details Recorded Time Td(adult) unspecified formulation 3 completed Not Available [facility] 05/17/2011 05:21:07 influenza, seasonal, intradermal, preservative free 3 completed Not Available [facility] 07/19/2019 02:34:58 influenza, unspecified formulation 0 completed Not Available [facility] 05/17/2011 05:22:41 influenza, unspecified formulation 5 completed [facility]/19[facility]2015 11:13:00 Influenza, split virus, quadrivalent, PF 8 completed Not Available [facility] 07/19/2019 02:23:00 Influenza, split virus, quadrivalent, preservative 6 [facility] 03/31/2016 08:06:25 Influenza, split virus, quadrivalent, preservative 7 [facility] 03/26/2017 08:31:47 Influenza, split virus, quadrivalent, PF 0 completed Neyda Vasquez MA [facility] 07/24/2019 16:38:21 Influenza, split virus, quadrivalent, PF 0 completed Brie Graham RN [facility] 05/24/2020 15:44:55 Influenza, split virus, quadrivalent, PF 1 [facility] 06/17/2021 16:03:30 COVID-19, mRNA, LNP-S, PF, 30 mcg/0.3 mL dose 1 [facility] 08/26/2020 09:28:36 COVID-19, mRNA, LNP-S, PF, 30 mcg/0.3 mL dose 1 completed Ron Azul MA [facility] 08/26/2020 09:29:14 Td (adult), 5 Lf tetanus toxoid, preservative free, adsorbed 3 completed Tanika Delacruz NP [address] [place] [address], [id number], [facility] 09/02/2022 09:58:56 Tdap 0 completed Not Available [facility] 07/19/2019 02:36:32 zoster recombinant 2 [facility] 11/18/2021 16:28:46 COVID-19, mRNA, LNP-S, PF, 30 mcg/0.3 mL dose 1 [facility] 11/25/2021 16:10:24 zoster recombinant 2 completed MARYAM Daniels, [facility] 09/01/2022 15:47:57 Past Encounters Encounter ID Performer Location Encounter Start Date Encounter Closed Date Diagnosis/Indication Diagnosis SNOMED-CT Code Diagnosis ICD10 Code Diagnosis Note [id number] Physical Therapy, [facility] [address] [place] [address] 08/28/2000 15:30:00 07/22/2008 02:02:29 [id number] , [facility], [address]ICE [address] [place] [address] 08/28/2000 14:30:00 07/22/2008 02:02:29 [id number] Physical Therapy, [address] [address] 10/09/2000 15:30:00 07/22/2008 02:02:29 [id number] Physical Therapy, [address] [address] 10/15/2000 16:00:00 07/22/2008 02:02:29 [id number] [facility], [address] [place] [address] 05/02/2001 16:00:00 07/22/2008 02:02:29 [id number] [facility], [address] [place] [address] 05/16/2001 16:00:00 07/22/2008 02:02:29 [id number] [facility], [address] [place] [address] 11/06/2001 15:45:00 07/22/2008 02:02:29 [id number] [facility], [address] [place] [address] 11/21/2001 15:45:00 07/22/2008 02:02:29 [id number] [facility], [address] [place] [address] 07/30/2002 09:19:22 07/22/2008 02:02:29 [id number] [facility], [address] [place] [address] 08/01/2002 11:15:58 07/22/2008 02:02:29 [id number] [facility], [address] [place] [address] 08/02/2002 15:02:07 07/22/2008 02:02:29 [id number] [facility], [address] [place] [address] 08/04/2002 10:11:08 07/22/2008 02:02:29 [id number] LAB - [facility] [address] [place] [address] 08/04/2002 10:50:50 07/22/2008 02:02:29 [id number] [facility], [address] [place] [address] 08/08/2002 10:14:44 07/22/2008 02:02:29 [id number] , [facility], [address] [place] [address] 08/15/2002 10:14:56 07/22/2008 02:02:29 [id number] [facility], [address] [place] [address] 11/01/2002 09:30:01 07/22/2008 02:02:29 [id number] Physical Therapy, [facility] [place] [address] 03/10/2003 15:59:36 03/10/2003 16:37:56 [id number] Physical Therapy, [facility] [address] 03/20/2003 16:03:40 03/20/2003 16:29:16 [id number] Physical Therapy, [facility] [address] 03/31/2003 16:30:52 04/01/2003 08:27:36 [id number] Physical Therapy, [facility] [place] [address] 04/21/2003 16:35:12 04/22/2003 08:03:37 [id number] [facility], OFFICE [address] [place] [address] 04/27/2003 16:33:11 04/29/2003 16:45:26 [id number] LAB - [facility] [address] 04/27/2003 00:00:00 07/22/2008 02:02:29 [id number] LAB - [facility] [address] 04/30/2003 08:07:07 04/30/2003 08:54:37 [id number] [facility], OFFICE [address] [place] [address] 04/30/2003 08:03:23 04/30/2003 16:39:46 [id number] SILVIA CHAO, OFFICE [address] [place] [id number] 6 05/01/2003 15:47:56 05/02/2003 10:55:12 [id number] LAB - [facility] [address] [place] [address] 04/30/2003 00:00:00 07/22/2008 02:02:29 [id number] Physical Therapy, [facility] [address] M[place]AM Lanza[address] 6 05/04/2003 16:01:47 05/04/2003 16:53:58 [id number] Physical Therapy, [facility] [address] M[place] Lanza62[address] 6 05/15/2003 15:57:05 05/15/2003 16:30:22 [id number] SILVIA CHAO, OFF[address] [place] [address] 05/22/2003 15:50:02 05/23/2003 10:48:00 [id number] LAB - [facility] [address] [place] [address] 05/22/2003 00:00:00 07/22/2008 02:02:29 [id number] LAB - [facility] [address] [place] [address] 06/29/2003 15:27:29 06/29/2003 15:30:41 [id number] SILVIA CHAO, OFFICE [address] [place] [address] 08/27/2003 09:47:18 08/27/2003 15:25:39 [id number] LAB - [facility] [address] [place] [address] 08/27/2003 00:00:00 07/22/2008 02:02:29 [id number] SILVIA CHAO, OFFICE [address] [place] [address] 11/03/2003 15:33:19 11/03/2003 18:05:25 [id number] LAB - [facility] [address] [place] [address] 11/03/2003 00:00:00 07/22/2008 02:02:29 [id number] SILVIA CHAO, OFFICE [address] [place] [address] 11/10/2003 15:38:36 11/10/2003 17:46:37 [id number] LAB - [facility] [address] [place] [address] 11/20/2003 16:38:20 11/20/2003 16:38:52 [id number] [facility], OFFICE [address] [place] [id number] 6 11/20/2003 15:41:14 11/20/2003 17:33:02 [id number] LAB - [facility] [address] 11/20/2003 00:00:00 07/22/2008 02:02:29 [id number] SILVIA CHAO, OFFICE [address] [place] [address] 01/16/2004 10:47:37 01/16/2004 11:40:25 [id number] LAB - [facility] [address] 6 01/16/2004 00:00:00 07/22/2008 02:02:29 [id number] LAB - [facility] [address] 04/14/2004 08:17:08 04/14/2004 08:17:27 [id number] [facility], OFFICE [address] [place] [address] 05/08/2004 09:59:15 05/08/2004 11:32:59 [id number] Physical Therapy, [facility] [address] 05/16/2004 17:00:48 05/18/2004 08:06:02 [id number] Physical Therapy, [facility] [address] 05/30/2004 16:54:29 05/31/2004 10:36:46 [id number] Physical Therapy, [facility] [address] 06/08/2004 17:32:14 06/13/2004 09:50:42 [id number] Physical Therapy, [facility] [address] 05/23/2004 17:04:45 07/22/2008 02:02:29 [id number] [facility] [facility], OFFICE [address] [place] [address] 06/20/2004 16:18:44 06/21/2004 17:11:05 [id number] Physical Therapy, [facility] MARYAM Zaldivar[address] 6 07/08/2004 16:30:22 07/11/2004 08:41:54 [id number] Physical Therapy, [facility] MARYAM Zaldivar[address] 6 07/18/2004 11:23:57 07/18/2004 14:23:27 [id number] Physical Therapy, [facility] MARYAM [id number] 6 07/25/2004 16:27:29 07/26/2004 08:26:03 [id number] Physical Therapy, [facility] MARYAM Zaldivar62[address] 6 08/01/2004 15:59:45 08/02/2004 09:20:05 [id number] Physical Therapy, [facility] MARYAM Zaldivar62[address] 6 08/05/2004 16:25:18 08/08/2004 08:15:48 [id number] Physical Therapy, [facility] MARYAM [id number] 6 08/08/2004 16:28:31 08/10/2004 16:10:08 [id number] Physical Therapy, [facility] MARYAM [id number] 6 08/12/2004 16:55:15 08/15/2004 08:11:10 [id number] Physical [facility], [facility] MARYAM [id number] 6 08/22/2004 17:02:29 08/24/2004 09:16:52 [id number] [facility] - [facility] MARYAM [id number] 6 11/03/2004 07:55:08 11/03/2004 07:55:37 [id number] [facility] - [facility] MARYAM [id number] 6 11/10/2004 15:49:17 11/10/2004 15:49:50 [id number] [facility] [address] 12/02/2004 16:08:32 12/05/2004 09:03:12 [id number] [facility] [place] [address] 12/02/2004 15:32:44 12/03/2004 13:08:43 [id number] [facility] - [facility] [address] 12/02/2004 00:00:00 07/22/2008 02:02:29 [id number] Radiology , [facility] [address] [place] [address] 01/25/2005 15:30:01 07/22/2008 02:02:29 [id number] [facility], OFFICE [address] M[place] [id number] 6 05/11/2005 16:37:13 07/22/2008 02:02:29 [id number] LAB - [facility] [address] [place] [address] 05/12/2005 15:54:26 05/12/2005 15:54:54 [id number] [facility], OFFICE [address] [place] [address] 08/22/2005 16:24:27 08/22/2005 17:13:45 [id number] [facility], OFFICE [address] [place] [address] 10/11/2005 10:46:05 10/11/2005 14:35:30 [id number] LAB - [facility] 70 [facility] [place] [address] 10/11/2005 00:00:00 07/22/2008 02:02:29 [id number] [facility], OFFICE [address] [facility] [place] [address] 11/07/2005 11:15:06 07/22/2008 02:02:29 [id number] Eye Care, [facility] Tarah [facility] [place] [address] 12/08/2005 17:16:59 07/22/2008 02:02:29 [id number] LAB - [facility] Tarah [facility] [place] [address] 01/19/2006 07:49:08 01/19/2006 07:49:16 [id number] Radiology , [facility] 70 [facility] [place] [address] 02/28/2006 15:09:53 07/22/2008 02:02:29 [id number] [facility], OFFICE [address] [facility] [place] [address] 11/05/2006 14:34:00 11/06/2006 10:25:46 [id number] LAB - [facility] Tarah [facility] [place] [address] 11/05/2006 15:31:17 11/05/2006 15:31:34 [id number] Radiology , [facility] [address] [place] [address] 05/02/2007 16:49:08 05/03/2007 08:42:55 [id number] [facility], OFFICE [address] [facility] [place] [address] 06/07/2007 15:30:16 07/22/2008 02:02:29 [id number] LAB - [facility] [address] 06/07/2007 00:00:00 07/22/2008 02:02:29 [id number] [facility], OFFICE [address] [facility] [place] [address] 07/12/2007 13:59:30 07/22/2008 02:02:29 [id number] LAB - [facility] [address] 07/12/2007 15:26:29 07/12/2007 15:26:46 [id number] [facility], OFFICE [address] [place] [address] 07/19/2007 15:31:45 07/22/2008 02:02:29 [id number] [facility], OFFICE [address] [place] [address] 08/16/2007 13:23:44 08/20/2007 08:06:54 [id number] [facility], OFFICE [address] [place] [address] 10/12/2007 11:21:46 07/22/2008 02:02:29 [id number] [facility], OFFICE [address] [place] [address] 12/09/2007 16:25:30 07/22/2008 02:02:29 [id number] [facility], OFFICE [address] [place] [address] 01/08/2008 16:21:14 07/22/2008 02:02:29 [id number] Eye Care, [address] [address] 01/27/2008 15:37:07 01/28/2008 06:54:22 [id number] [facility], OFFICE [address] [place] [address] 03/12/2008 16:05:11 07/22/2008 02:02:29 [id number] [facility] , [facility] [address] [place] [address] 06/06/2008 11:22:01 06/08/2008 09:23:45 [id number] LAB - [facility] [address] [place] [address] 07/16/2008 07:56:02 07/16/2008 07:56:07 [id number] , [facility], OFFICE [address] [facility] [place] [address] 10/13/2008 13:47:28 10/14/2008 11:34:28 [id number] , [facility], OFFICE [address] [place] [address] 01/25/2009 15:30:58 01/26/2009 11:13:29 [id number] , [facility], OFFICE [address] [place] [address] 02/10/2009 16:33:30 02/11/2009 16:20:21 [id number] LAB - [facility] [address] [place] [address] 12/21/2008 15:23:59 12/21/2008 15:24:10 [id number] LAB - [address] [address] 01/25/2009 00:00:00 04/29/2009 02:00:52 [id number] , [facility], [address]ICE [address] [place] [address] 06/19/2009 09:22:00 06/20/2009 09:15:13 [id number] , [facility], [address] [place] [address] 01/31/2010 16:49:16 02/01/2010 11:37:43 [id number] [facility], OFFICE [address] [place] [address] 05/20/2010 15:37:15 05/23/2010 11:15:05 [id number] , [facility], OFFICE [address] [place] [address] 07/01/2010 09:12:20 07/04/2010 15:27:36 [id number] , [facility], [address]ICE [address] [place] [address] 07/07/2010 11:54:43 07/11/2010 15:21:56 [id number] , [facility], OFFICE [address] [place] [address] 04/04/2011 16:49:09 04/04/2011 17:22:30 [id number] Radiology , [facility] [address] [place] [address] 04/04/2011 17:16:49 04/05/2011 13:43:57 [id number] [facility] , [place] [address] 04/12/2011 15:30:29 04/13/2011 13:19:41 [id number] , [facility], OFFICE [address] [place] [address] 04/14/2011 16:34:30 04/14/2011 17:03:39 [id number] Radiology , [address] [address] 04/21/2011 12:30:37 04/25/2011 11:31:02 [id number] [facility], OFFICE [address] [place] [address] 08/04/2011 16:01:46 08/04/2011 16:52:42 [id number] , [facility], OFFICE [address] [place] [address] 11/14/2011 15:57:45 11/14/2011 17:53:23 [id number] [facility], OFFICE [address] [place] [address] 07/03/2012 06:20:38 07/03/2012 15:40:30 [id number] Carlos Johansen MD Radiology , [address] [address] 07/22/2012 11:00:47 07/23/2012 09:06:59 [id number] MARYAM Mora [facility], OFFICE [address] [place] [address] 12/10/2012 14:48:01 12/11/2012 10:11:13 [id number] JEREMIE [facility], OFFICE [address] [place] [address] 02/17/2013 15:49:35 02/18/2013 11:28:38 Hearing loss [id number] sudden onset new hearing loss on left - already has significan t hearing loss on the right requiring a hearing aid - referred to ENT - appt tomorrow - referral sent [id number] MARYAM Mora [facility], OFFICE [address] [place] [address] 04/03/2013 16:14:26 04/08/2013 10:06:41 Low back pain [id number] Seen in ER. Seems like she is overmedica ting self with the oxycodone and muscle relaxers as she is groggy, out of it . Enc. switch to ibuprofen 800 mg tid during the day . For more severe pain add 1 roxicet as below, only take 2 if needed at HS for severe pain and to help with sleep. Muscle relaxers only at bedtime. Start icing low back more freq. Work note given - out until evaluated by physiatry on . Already has appt. Hip pain 10337145 Pt has hx trochanter ic bursitis in past. Seems like flare up of this in addition to the low back pain. Enc. ibuprofen as above and f/u if not gradually improving. Sees physiatry next week. [id number] Lina Lazaro , [facility], [address]ICE [address] [place] [address] 02/03/2014 16:02:16 02/03/2014 17:00:45 Adult health examination [id number] see Risk Assessment and Lifestyle Change Counseling section above - pt will schedule mammo - enc. cont. efforts at healthy diet and wt loss - increase exercise as able - lipids last fall were okay, FBS has been borderline high in past but pt losing wt, will not repeat for 6 months Counseling [id number] Tuberculos is screening [id number] needs PPD for work - will return for nurse visit to have this read in 48-72 hours Foot pain 59456417 About 2 months right foot pain - will refer to podiatry Postmenopa usal bleeding 05198156 1 episode post menopausal bleeding - lasted only few hours - pt also with uterine prolapse - will get pelvic u/s and ? referral to interior block wirer Hypothyroidism 21512390 TSH in good range - continue same dose thyroid medication [id number] Riley Mann MD , [facility], [address]ICE [address] [place] [address] 03/26/2014 16:37:17 03/26/2014 17:14:22 Melena [id number] may have had some melana that has resolved. may be from gastritis related to her nsaid. stop med and check in with her rheumatolo gist. is on omeprazole now. [id number] Ruthann Hodges , [facility], [address] [place] [address] 07/29/2014 09:48:29 07/29/2014 17:52:34 Viral upper respiratory tract infection [id number] Patient with clinical presentati on of viral upper respirator y infection. No benefit of anti-viral treatment discussed. No hemodynami c instabilit y. Supportive care with ample oral hydration and rest discussed. Advised on nasal saline irrigation , decongesta nt, and NSAID use. Cough syrup prescribed . Advised to contact the clinic if no improvemen t in 3-4 days. Indication s for UC/ER use discussed. Respiratory crackles 73404543 Patient with URI symptoms. Normal O2 sat. Normal BP/HR. Left basilar crackles. Chest X-ray showed tenting of the hemidiaphr agm (unchanged ). No evidence of pneumothor ax, pleural effusions or acute consolidat ions. The result reviewed with the patient. Advised to contact the clinic if any worsening symptoms. Droplet precaution discussed. Spent 25 minutes of face-to-fa ce time, greater than 50% was spent on counseling . [id number] , [facility], [address] [place] [address] 08/20/2014 12:03:27 08/24/2014 08:27:32 Influenza [id number] Reassured. She is improving. Continue adequate rest, force fluids, steam inhalation prn. Work note given. She is going to try and return to work later this week. Bereavement [id number] Mom 2 weeks ago - was fairly sudden. Is grieving appropriat sangita. Has good family support. Enc. f/u prn. [id number] Tanika Delacruz NP , [facility], [address] [place] [address] 04/23/2015 14:52:17 04/23/2015 15:55:08 Adult health examination 748011630 Z00.00 see Risk Assessment and Lifestyle Change Counseling section above - enc. healthy diet/exerc ise habits and f/u annually, sooner prn. Counseling 344827979 Z71 .9 Osteoarthritis 783473035 M19.90 had been followed by rheumatolo hilaria, Dr. Lopez, who is retiring. Currently on celebrex and omeprazole and we discussed that I can take over prescribin g these in the future. There was a ? of RA (sero-neg) and I will refer her to our rheumatolo gist for further evaluation (pt aware will take months to get into see him). Impaired f asting glycemia 622985322 R73.01 should get repeat blood sugar - will get today with A1C and I'll f/u with results when available. Hypothyroidism 87975969 E03.9 TSH in range - continue current dose synthroid [id number] Umu Peña, Ms, Rdn, Ldn, CDE Nutrition -[address] [address] 06/18/2015 15:22:19 06/18/2015 16:17:09 Impaired fasting glycemia 747000532 R73.01 [id number] Nando Varma OD [facility], [address] [address] 06/22/2015 16:01:13 06/22/2015 17:13:58 Ophthalmic examination and evaluation 50336894 Z01.01 Nuclear se nile cataract 541935314 H25.13 Cortical s enile cataract 21333793 H25.013 Hypermetropia 35358179 H 52.03 Astigmatism 12494696 H52 .222 Presbyopia 15101881 H52. 4 [id number] Elvis Adler MD Endocrino [address] [address] 08/06/2015 10:08:06 08/06/2015 10:54:40 Obesity 627593836 E66.9 -add topiramate 25mg (1 tab) once daily for a week then 25mg (1 tab) twice daily thereafter ; if stopping, first decrease to 25mg daily for a week then stop -add phentermin e 15mg by mouth once daily Hypothyroidism 93700252 E03.9 -synthroid 75mcg by mout daily, brand name medically necessary [id number] Kang [address] [address] 08/06/2015 15:25:52 09/23/2015 11:34:16 Impaired fasting glycemia 336632157 R73.01 [id number] Elvis Adler MD Endocrino logy[address] [place] [address] 11/05/2015 14:40:02 11/05/2015 16:21:50 Obesity 565294638 E66.9 -topiramat e 25mg (1 tab) once daily, may increase 25mg (1 tab) twice daily if needed -add belviq 10mg by mouth 2 times daily -labs today -clinic 3mo Hypothyroidism 82297946 E03.9 -synthroid 75mcg by mout daily, brand name medically necessary [id number] Marita Richardson , [facility], [address] [place] [address] 11/09/2015 12:03:21 11/11/2015 09:00:58 Acute bronchitis 53932153 J20.9 Upper resp iratory infection 47354192 J06.9 doubt sinusitis which is what pt is concerned about - sx for only 5-6 days - seems viral - discussed problems with antibiotic overuse - enc. force fluids, steam inhalation prn and f/u if not gradually improving or sx worsening [id number] Kang Ruiz , [facility], [address] [place] [address] 11/16/2015 14:17:35 11/17/2015 13:15:46 Cough 94514381 R05 cxr done and ? RLL infiltrate . Will await radiologis t report but treat as below. Enc. force fluids, adequate rest, can continue tussin DM cough syrup prn and f/u for worsening sx. [id number] Tanika Delacruz NP , [facility], [address] [place] [address] 02/07/2016 16:12:45 02/10/2016 14:59:01 Anxiety 56897941 F41.9 with some depression and increased situationa l stress - in past given lorazepam after of her mom and used very sparingly to help with sleep. I refilled this for her today to use mostly at HS, but could use prior to getting on the airplane next week as well. Reassured. Pt has alot of situationa l stress with in-laws being ill and is also grieving recent of her best friend. Enc. to take her vacation and try to enjoy being with her family. If still feeling this way when she returns, f/u here to consider ?SSRI and referral to behav. health. Over 50% Of today's 30 min visit was spent on counsellin g/med mgt. [id number] Elvis Adler MD Endocrino logy, [address] [address] 03/10/2016 14:47:09 03/10/2016 15:50:32 Hypothyroidism 92889307 E03.9 -synthroid 75mcg by mouth daily, brand name medically necessary Obesity 510527935 E66.9 -goal: increase 1.5h at the gym 5x/wk once getting additional help from sister in law -work on stress to free you up to care for yourself -phentermi ne 15mg by mouth once daily, may alternate month on and off if preferred- topiramate 25mg (1 tab) once daily, may increase 25mg (1 tab) twice daily if needed -clinic 4wi [id number] Tanika eDlacruz NP , [facility], [address] [place] [address] 05/02/2016 16:00:30 05/02/2016 16:46:43 Adult health examination 013378147 Z00.00 see Risk Assessment and Lifestyle Change Counseling section above - enc cont. healthy diet/exerc ise habits and efforts at wt loss and congratula lisbeth on keeping off the wt that she lost so far Counseling 888407124 Z71 .9 Anxiety 75875359 F41.9 with some depression and increased situationa l stress - enc. take time for herself and her when able - try a date night . Lorazapam refilled as below to use sparingly [id number] Elvis Adler MD Endocrino logy, [facility] [address] [place] [address] 07/07/2016 14:40:39 07/07/2016 15:50:36 Hypothyroidism 76810510 E03.9 -synthroid 75mcg by mouth daily, brand name medically necessary Obesity 923296040 E66.9 -goal: increase 1.5h at the gym 5x/wk once getting additional help from sister in law -work on stress to free you up to care for yourself -phentermi ne 15mg by mouth once daily, may alternate month on and off if preferred- topiramate 25mg (1 tab) twice daily , consider 50mg twice daily if needed -holiday from these weight loss medication s after 3 to 4mo [id number] Riley Mann MD , [facility], [address] [place] [address] 07/12/2016 11:02:46 07/13/2016 11:42:39 Acute upper respiratory infection 10866909 J06.9 rest, hot liquids. ibuprofen [id number] Aleksey Joyner MD , [facility], [address] [place] [address] 08/04/2017 10:17:42 08/04/2017 11:32:31 Ankle pain 912773261 M25.090 [id number] WERO Bose, [facility], [address] [place] [address] 08/10/2017 16:14:40 08/13/2017 12:19:27 Sprain of ankle 24179752 S93.401D Enc gradually increase exercise as zack. Ankle sprain exercises printed out and given to pt to try. Cont. to elevate this over the weekend. Wear YANA bandage and comf. footwear at work. OK to return to work on Sunday - paperwork faxed. No running until swelling gone, no pain and has done some of the ankle strengthen ing exercises with no discomfort . Could take 4-6 weeks to completely heal. F/u prn for worsening sx. Anxiety 17927539 F41.9 Uses lorazepam very sporadical ly. Refilled as below. [id number] WERO Bose, [facility], [address] [place] [address] 11/02/2017 14:54:22 11/02/2017 15:56:59 Adult health examination 444638635 Z00.00 see Risk Assessment and Lifestyle Change Counseling section above Depression screening 171 142662 Z13.89 depression screening tool administer ed, entered into emr, scored and discussed, time greater than 7.5 minutes Hypothyroidism 23768854 E03.9 TSH today and I'll f/u with results when available Obesity 075898057 E66.9 Has had luck with short term use of phentermin e/topamax to jump start weight loss. Originally ordered by endocrine. Wants to try again as has regained some of the wt she lost and is having increased joint pains. Rx sent as below. Should only use for 2-3 months and then d/c. Hearing loss 57171743 H9 1.93 Asymmetric al hearing loss which is progressin g. ENT wants repeat MRI to r/o acoustic neuroma. Ordered as below. Someone will call her to schedule. Anxiety 16341796 F41.9 Uses lorazepam very sporadical ly. Refilled as below. Joint pain 26421836 M25. 50 Used to see rheum. Hearing loss worsened after on some medication for her joint pain sx. Doesn't want to restart meds for this. Enc work on wt loss which has been helpful in the past. Cont. regular exercise and f/u prn worsening sx [id number] Scott Alfaro PA-C , [facility], [address] [place] [address] 02/09/2018 10:31:13 02/09/2018 12:14:06 Knee pain 69768245 M25.561 XR ok. Nolaxity. Continue ice/ibupro fen/knee brace. Book w/ PT [id number] Nelson Devi , PT Physical Therapy, [facility] [address] [place] [address] 02/19/2018 09:31:22 02/20/2018 13:17:14 Pain in right knee 1642648559 48184 M25.561 63 year old {{female* male}} with findings most consistent with right knee pain with mobility deficit and primary irritation of the medial compartmen t. Patient has significan t functional limitation in their {{activiti es of daily living act ivities of daily living and work capacity a ctivities of daily living and exercise capacity* activities of daily living and recreation }}. Skilled physical therapy is needed to safely and progressiv sangita address impairment s and functional limitation s as outlined below. Patient Goals: Be able to transfer, stand, walk, climb stairs and run to return for ADLs and exercise without knee pain or limitation . Clinical Goals: 1. Demonstrat e symmetric pain free active, passive and resisted motions of the {{neck and upper extremitie s shoulder elbow, forearm and wrist trun k and lower extremitie s hip knee * ankle}}. 2. Demonstrat e sufficient muscular endurance to meet functional demands. Treatment Plan: Patient to return for {{4 6 8* 1 0}} visits over {{ 8 12*} } weeks. We expect significan t change in pain, impairment and function in this time frame. Treatment to Include: Therapeuti c exercise and manual therapy [id number] Nelson Devi , PT Physical Therapy, [address] [address] 03/01/2018 16:29:02 03/07/2018 09:16:22 Pain in right knee 2225013390 52475 M25.561 Patient Goals: Be able to transfer, stand, walk, climb stairs and run to return for ADLs and exercise without knee pain or limitation . Clinical Goals: 1. Demonstrat e symmetric pain free active, passive and resisted motions of the {{neck and upper extremitie s shoulder elbow, forearm and wrist trun k and lower extremitie s hip knee * ankle}}. 2. Demonstrat e sufficient muscular endurance to meet functional demands. Treatment Plan: Patient to return for {{4 6 8* 1 0}} visits over {{ 8 12*} } weeks. We expect significan t change in pain, impairment and function in this time frame. Treatment to Include: Therapeuti c exercise and manual therapy [id number] Nelson Devi , PT Physical Therapy, [address] [address] 03/08/2018 16:31:26 03/11/2018 15:55:02 Pain in right knee 3762104759 76328 M25.561 Patient Goals: Be able to transfer, stand, walk, climb stairs and run to return for ADLs and exercise without knee pain or limitation . Clinical Goals: 1. Demonstrat e symmetric pain free active, passive and resisted motions of the {{neck and upper extremitie s shoulder elbow, forearm and wrist trun k and lower extremitie s hip knee * ankle}}. 2. Demonstrat e sufficient muscular endurance to meet functional demands. Treatment Plan: Patient to return for {{4 6 8* 1 0}} visits over {{4 8 12*} } weeks. We expect significan t change in pain, impairment and function in this time frame. Treatment to Include: Therapeuti c exercise and manual therapy [id number] Nelson Devi , PT Physical Therapy, [facility] [address] [place] [address] 03/22/2018 15:32:36 03/25/2018 13:57:14 Pain in right knee 5420482965 70448 M25.561 Patient Goals: Be able to transfer, stand, walk, climb stairs and run to return for ADLs and exercise without knee pain or limitation . Clinical Goals: 1. Demonstrat e symmetric pain free active, passive and resisted motions of the {{neck and upper extremitie s shoulder elbow, forearm and wrist trun k and lower extremitie s hip knee * ankle}}. 2. Demonstrat e sufficient muscular endurance to meet functional demands. Treatment Plan: Patient to return for {{4 6 8* 1 0}} visits over {{4 8 12*} } weeks. We expect significan t change in pain, impairment and function in this time frame. Treatment to Include: Therapeuti c exercise and manual therapy [id number] Nelson Devi , PT Physical Therapy, [address] [address] 03/29/2018 16:56:33 04/08/2018 12:55:43 Pain in right knee 3615592820 66677 M25.561 Patient Goals: Be able to transfer, stand, walk, climb stairs and run to return for ADLs and exercise without knee pain or limitation . Clinical Goals: 1. Demonstrat e symmetric pain free active, passive and resisted motions of the {{neck and upper extremitie s shoulder elbow, forearm and wrist trun k and lower extremitie s hip knee * ankle}}. 2. Demonstrat e sufficient muscular endurance to meet functional demands. Treatment Plan: Patient to return for {{4 6 8* 1 0}} visits over {{4 8 12*} } weeks. We expect significan t change in pain, impairment and function in this time frame. Treatment to Include: Therapeuti c exercise and manual therapy [id number] DELMI Hassan , [facility], [address] [place] [address] 04/01/2018 16:37:16 04/05/2018 15:46:26 Active or passive immunization 209824075 Z23 [id number] WERO Bose, [facility], [address] [place] [address] 09/20/2018 07:55:30 09/20/2018 08:43:51 Clavicle pain 996018358 M25.519 Lump on clavicle, not painful. Will order x-ray. Possible arthritis. Reassured. Will f/u with results when available. Osteoarthritis 429054887 M19.90 had been followed by rheumatolo hilaria in past - felt this is osteoarthr itis, not RA. Sx in knees, hands. Stable. Wants to try CBD oil/lotion and is looking at getting a medical marijuana card. Obesity 324663797 E66.9 Has had luck with short term use of phentermin e in past but then gains the wt back once she's off the med. I am not inclined to restart this. Reviewed potential adverse effects from adjunct faculty for medical terminology use of this med and the fact that the benefits are short term and don't last. Would continue to work on healthy diet/exerc ise habits to help with wt loss. [id number] Tanika Delacruz NP , [facility], [address] [place] [address] 11/04/2018 14:59:32 11/04/2018 15:37:07 Adult health examination 070162243 Z00.00 see Risk Assessment and Lifestyle Change Counseling section above - generally very healthy and up to date with health maintenanc e. Reviewed recent labs are wnl. Encouraged to continue healthy habits and follow-up annually, sooner as needed. Depression screening 171 847348 Z13.89 depression screening tool administer ed, entered into emr, scored and discussed, time greater than 7.5 minutes Hypothyroidism 17517226 E03.9 TSH wnl, stable on current meds. Anxiety 69062866 F41.9 Uses lorazepam very sporadical ly. Refilled as below. Varicose v eins of lower extremity 34453103 I83.90 Will refer to vascular surgery for painful varicose veins. Skin lesion 46341370 L98 .9 Will refer to derm for a skin check. [id number] MALATHI Broussard, [facility], [address] [place] [address] 07/24/2019 16:16:37 07/24/2019 17:11:51 Acute upper respiratory infection 36051420 J06.9 Educated patient that URI is a viral illness of the upper airways. It is not bacterial and does not benefit from antibiotic s. Average duration of URI is 7-10 days but in a recent trial, treatment at 7-10 days of illness with antibiotic s, intranasal steroids, or placebo did not alter natural history at 3 weeks. Recommende d symptomati c treatments including NSAIDS, semi-uprig ht sleep position, antihistam wilmer at HS, limited course of nasal sympathomi metics and/or cough syrups, and nasal saline rinses with soft squeeze bottle or Neti pot. Return for fevers > 101 for 3 days, worsening sinus pain, or failure to resolve in 2-4 weeks. Active or passive immunization 725173754 Z23 [id number] LINO Garcias, [facility], [address] [place] [address] 07/25/2019 08:20:17 07/25/2019 11:15:20 Acute otitis media 6178540 H66.93 Anbx indicated. PNCL allergy. Will give RX. RTC for worsening/ persisting sx. [id number] WERO Bose, [facility], [address] [place] [address] 07/29/2019 15:14:20 07/29/2019 17:34:57 Otitis media 12877444 H66.92 This appears to be much improved. Enc. finish antibiotic s. Reassured. Hearing should come back as fluid is reabsorbed . F/u prn if not improving or sx worsening. Fatigue 04677576 R53.83 Feels has been sick for a long time, very fatigued and requesting cbc to be sure no anemia or s/s infection. Will get this on her way out today. [id number] Brie Graham RN FP, [facility], [address] [place] [address] 05/24/2020 08:35:12 05/25/2020 08:54:33 Active or passive immunization 213059483 Z23 [id number] WERO Bose, [facility], [address] [place] [address] 08/26/2020 09:22:21 09/07/2020 15:29:51 Adult health examination 022460911 Z00.00 see Risk Assessment and Lifestyle Change Counseling section above - generally very healthy and up to date with health rudy leavitt. Reviewed recent labs are wnl. Encouraged to continue healthy habits and follow-up annually, sooner as needed. Due for Td booster but just had 2nd covid vaccine. Pt will call back to schedule with nursing in the near future Depression screening 171 661561 Z13.89 depression screening tool administer ed, entered into emr, scored and discussed, time greater than 7.5 minutes Screening for alcohol abuse 942943960 Z13.39 discussed -no concerns Counseling 786050552 Z71 .89 Hypothyroidism 26214962 E03.9 TSH wnl, stable on current meds. Screening for malignant neoplasm of colon [id number] Z12.11 Referral for a DIRECT booked colonoscop y. This patient is a healthy ASA Class 1 or 2 patient (only mild systemic disease), or a STABLE, well controlled insulin dependent diabetic. They do not have serious cardiac disease ie ME/angiopl asty within 1 year, symptomati c CHF; renal failure with CKD 4 or 5; take Coumadin, Plavix, Aggrenox, etc. Anxiety 41772449 F41.9 Uses lorazepam very sporadical ly. Lots situationa l stress currently (family issues) Refilled as below. Impaired f asting glycemia 369667713 R73.01 Recent blood sugar wnl and pt exercising more, trying to watch diet. Obesity 471507746 E66.9 Chronic issue - can't seem to lose. Now exercising more which is keeping her from gaining. Enc. healthy diet/f/u prn [id number] Tanika Delacruz NP , [facility], [address] [place] [address] 06/17/2021 15:30:47 06/19/2021 17:25:12 Active or passive immunization [id number] Z23 Trochanter ic bursitis of left hip [id number] 17051 M70.62 Discussed. Referred to sports med as below Pain of le ft knee joint [id number] 44999 M25.562 Check xray and referred to sports medicine as below. F/u if not improving Multiple a ctinic keratoses 950279739 L57.0 Multiple small white, raised rough areas on arms/legs/ trunk. Referred to derm - pt to schedule [id number] Blank Galvin MD Sports Medicine, [facility] [address] [place] [address] 07/05/2021 13:51:54 07/06/2021 14:50:00 Pain of left knee joint [id number] 84314 M25.562 Geri is a 66-year-ol d female with an exacerbati on of chronic left knee pain that I believe is due to mild osteoarthr itis versus a medial meniscal tear. I reviewed this diagnosis with her today as well as discussing treatment options both short and long-term. We discussed the use of NSAIDs, physical therapy, corticoste roid injections , viscosuppl ementation , and surgery. I have given her a referral to physical therapy and she will call to set up an appointmen t. She will plan to use over-the-c ounter NSAIDs to see if this alleviates her symptoms. She will plan to follow up with me in 8 weeks for reevaluati on if she is having persistent pain. Osteoarthr itis of knee 066571099 M17.12 [id number] Blank Galvin MD Sports Medicine, [address] [address] 07/18/2021 12:40:56 07/19/2021 14:43:44 Pain of left knee joint [id number] 11379 M25.562 Geri is a 66-year-ol d female with bilateral knee pain secondary to osteoarthr itis as seen on her previous x-rays. I reviewed this diagnosis with her today as well as discussing further treatment. We discussed continued physical therapy, the use of oral NSAIDs, repeat corticoste roid injections , viscosuppl ementation , and surgery. Unfortunat sangita she has had ongoing symptoms despite quite extensive conservati ve management but has had good relief of pain with previous viscosuppl ementation which she would like to try again. She is planning to change insurance on 08/30/2021 and needs to check into her current deductible prior to starting a prior authorizat ion for hyaluronic acid injections . She will plan to do research on her current deductible and plan to contact us if and when she wants to start viscosuppl ementation for both of her knees. Osteoarthr itis of knee 644893252 M17.0 Pain of ri ght knee joint 5897254775 69849 M25.172 [id number] Shawna Parker, PT Physical Therapy, [facility] [address] [place] [address] 08/05/2021 15:58:51 08/08/2021 08:18:58 Osteoarthritis of left knee joint [id number] 34263 M17.12 Patient is a 66-year old {{female* male}} who presents to physical therapy with c/o L knee pain which is not improving. Physical examinatio n revealed muscle weakness of the L hip and during L knee flexion, medial L knee pain during L SLR, swelling and TTP of the L pes anserinus, and TTP of the L medial hamstrings , ITB, glute med, and greater trochanter . Suspect strain of multiple muscles of the left thigh with possible contributi on from pre-existi ng RA.Patient has {{signific ant* moder ate mild}} functional limitation in their {{activiti es of daily living act ivities of daily living and work capacity a ctivities of daily living and exercise capacity* activities of daily living and recreation }}. {{His Her* Their}} primary limitation s are with standing or walking for longer than 10 minutes, squatting, ascending or descending stairs, cycling, and running. Skilled physical therapy is indicated to safely and progressiv sangita address impairment s and functional limitation s as outlined below. Patient is a {{good* fa ir poor}} candidate for physical therapy due to active lifestyle, good support system, and motivation to actively participat e in {{his her* their}} plan of care. Short Term Goals:In 4 weeks, patient will:1. Perform left SLR without knee pain.2. Perform full L knee flexion AROM without pain. 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 Demonstrat e pain free active, passive and resisted motions of the left knee.2. Demonstrat e 4+/5 knee flexion strength.3 . Walk for 20 minutes without increased L knee pain.4. Ascend and descend full flight of stairs without increased L knee pain.5. Demonstrat e independen ce with comprehens francisco HEP. Treatment Plan: Patient to return for {{4 6 8 10 *}} visits over {{4 8 12*} } weeks. We expect significan t change in pain, impairment and function in this time frame.Angelina tment to Include: Continuing assessment , therapeuti c exercise, patient education, HEP (initiated ), manual therapy PRN, modalities PRN. [id number] Shawna Parker, PT Physical Therapy, [facility] [address] [place] [address] 08/08/2021 15:33:02 08/09/2021 12:34:04 Osteoarthritis of left knee joint [id number] 11606 M17.12 [id number] Tanika Delacruz NP FP, [facility], [address] [place] [address] 11/25/2021 15:58:56 2022 13:07:08 Adult health examination 749400407 Z00.00 see Risk Assessment and Lifestyle Change Counseling section above - generally very healthy and up to date with health maintenanc e. Due for fasting labs - will return for this. Encouraged to continue healthy habits and follow-up annually, sooner as needed. Due for Td booster but just had shingles vaccine. Pt will call back to schedule with nursing in the near future Depression screening 171 818560 Z13.31 depression screening tool administer ed, entered into emr, scored and discussed, time greater than 7.5 minutes Screening for alcohol abuse 361988798 Z13.39 discussed -no concerns Counseling 165936199 Z71 .89 Hypothyroidism 19673519 E03.9 Due for TSH Pain of le ft shoulder joint [id number] 7995514 M25.512 Will get xray today and has f/u with Dr. Galvin in 3 weeks for ? cortisone injection Uterine prolapse 0809466 5 N81.4 Discussed trial of pessary - pt considerin g - if desires, will f/u with interior block wirer Obesity 783622002 E66.9 Chronic issue - can't seem to lose. Now exercising more which is keeping her from gaining. Enc. healthy diet and continue to remain active and f/u prn if wanting help from nutritioni st Multiple joint pain 356 8005 M25.50 Has seen rheum previously and told osteoarthr itis. OK to cont. the ibuprofen (take with food) and CBD balm which she finds helpful. F/u prn. [id number] Blank Galvin MD Sports Medicine, [facility] [address] [place] [address] 12/20/2021 13:46:36 12/28/2021 13:21:40 Shoulder pain 19314082 M25.512 Geri is a 66-year-ol d female with left shoulder pain today believing is due to impingemen t and rotator cuff tendinosis . She may also have partial-th ickness tearing causing some of her symptoms. She does not have any weakness or evidence of a full-thick ness tear on exam. I reviewed this diagnosis with her today as well as discussing treatment. Overall she has done well with self directed physical therapy which I did advise that she continue. I informed Geri that her increase to 5 pound weights is likely too much for her and causing exacerbati on of her symptoms. I advised that these are not needed for further therapy and she should reduce her weight to 2-3 pounds or less if needed to reduce symptoms. We discussed the possibilit y of a corticoste roid injection in the future if she has persistent or increasing pain. At this point she will plan to follow with me as needed for further care. [id number] David Monsalve RN [facility], [address] [address] 04/07/2022 10:57:45 04/07/2022 13:02:27 [id number] Tanika Delacruz NP , [facility], [address] [place] [address] 09/01/2022 15:28:47 09/01/2022 17:37:52 Active immunization 93314344 Z23 Elevated blood-pressure reading without diagnosis of hypertension 043896284 R03.0 Not at goal but improving. Coming out of very stressful episode with family/fin ancial issues. Plans to work more vigilantly on diet/exerc ise/wt loss. Will hold off on meds for now and pt will f/u for BP check in 2 months. Continue to follow bp's at home with goal of <130/80. F/u sooner if trending upwards or other concerns Impaired f asting glycemia 823603650 R73.01 Will repeat with next labs prior to f/u in 2 mos Hypothyroidism 23312219 E03.9 Due for TSH with next labs [id number] Alejandro Beard MD FP, [facility], [address] [place] [address] 10/22/2022 11:23:23 10/26/2022 14:51:09 Low vision, one eye 460770213 H54.50 [id number] WERO Bose, [facility], [address] [place] [address] 10/31/2022 16:26:54 10/31/2022 17:13:04 Visual impairment 081908642 H54.7 Due to hyphema - being followed at [facility] in [place]. Will also need cataract surgery. Referral already sent to [facility] for that and pt will schedule appt later this summer. Vision much improved. F/u prn. Hyphema 94248674 H21.02 Pain in ri ght hip joint 9922202426 70000 M25.551 Will check xray today and pt to schedule f/u with sports med [id number] WERO Bose, [facility], [address] [place] [address] 11/17/2022 15:28:03 11/20/2022 10:30:01 Hypothyroidism 90147437 E03.9 TSH in good range - cont. same dose medication Impaired f asting glycemia 121012906 R73.01 FBS up over 125 - discussed. A1C still in range of pre-diabe jacky but trending upwards. Enc healthy diet, increase exercise as able and continue to work on wt loss. Will repeat in 6 mos, sooner prn Osteoarthritis 503523298 M19.90 Problems with right hip - will be seeing sports med for this Common cold 67001813 J00 Reassured. Symptoms consistent with viral Upper Respirator y Infection. Encouraged adequate fluids/res t and over the counter analgesics as needed. Follow up for worsening symptoms (i.e. fever, chest pain, shortness of breath). Elevated blood-pressure reading without diagnosis of hypertension 329300150 R03.0 At goal on repeat - enc. healthy habits, work on some more wt loss and f/u as planned for [place] next month. [id number] WERO Bose, [facility], [address] [place] [address] 11/30/2022 10:52:25 11/30/2022 15:59:16 Osteoarthritis 878021647 M19.90 Right knee - had xrayed in past. Referred as below for recent flare up of sx. Pain of ri ght knee joint 3497095013 45540 M25.561 Referred to sports med - pt will schedule - ok to use brace prn if more comfortabl e (has soft brace). Ice, rest, elevation prn. Elevated blood-pressure reading without diagnosis of hypertension 190569001 R03.0 Has [place] scheduled in a couple of weeks and can repeat then. Enc healthy habits. [id number] Blank Galvin MD Sports Medicine, [facility] [address] [place] [address] 12/14/2022 12:54:57 12/28/2022 13:36:56 Pain of left knee joint 1185327909 72113 M25.562 Geri is a 67-year-ol d female with bilateral knee pain due to underlying osteoarthr itis. I reviewed this diagnosis again with her today as well as discussing treatment. We discussed the importance of continued physical therapy, the use of oral medication s, corticoste roid injections and viscosuppl ementation , as well as potential future surgery. With her worsening symptoms she would like to try a corticoste roid injection and did undergo bilateral knee joint corticoste roid injections under ultrasound guidance. She tolerated this well without complicati on. She will ice and rest over the next week and gradually resume normal activities . I have advised she restart her physical therapy at home in 7-10 days. She does not have good symptom relief and epidural range for viscosuppl ementation . She will plan to follow up with me as needed for further care. Pain of ri ght knee joint 7159584225 81729 M25.561 Osteoarthr itis of knee 267125987 M17.0 [id number] WERO Bose, [facility], [address] [place] [address] 12/15/2022 08:58:36 12/15/2022 12:08:04 Adult health examination 095233711 Z00.00 see Risk Assessment and Lifestyle Change Counseling section above - generally very healthy and up to date with health maintenanc e. Depression screening 171 884050 Z13.31 depression screening tool administer ed Screening for alcohol abuse 071797524 Z13.39 Alcohol use screening tool administer ed Hypothyroidism 68136886 E03.9 TSH in good range - synthroid too expensive for her - switch to generic and repeat TSH in Dec prior to next visit Screening mammography 24 917517 Z12.31 pt to schedule Bilateral hearing loss 80637618 H91.93 Needs new hearing aids - referred back to audiology who has seen her previously Hyphema 46280863 H21.02 Was seen in [place] - told also ? glaucoma - needs local ophthalmol ogist - referred Impaired f asting glycemia 677470592 R73.01 FBS up over 125 - discussed. A1C still in range of pre-diabe jacky but trending upwards. Enc healthy diet, increase exercise as able and continue to work on wt loss. Will repeat in 6 mos, sooner prn Morbid obesity 968515686 E66.01 Very frustrated by inability to lose wt. Offered nutrition referral but pt feels knows what she should be eating, eats very well and still not losing. Unable to exercise as previously d/t knee pain. Hopeful with knee injections that she will be able to gradually increase activity level [id number] Blank Galvin MD Sports Medicine, [address] [address] 01/10/2023 15:41:50 01/10/2023 16:22:09 Hip pain 01187935 M25.551 Geri is a 68-year-ol d female with right hip pain due to greater trochanter ic pain syndrome. I reviewed this diagnosis with her today as well as discussing treatment. We discussed continued physical therapy and use of oral or topical NSAIDs and use of corticoste roid injections . With ongoing symptoms despite therapy she would like to try an injection and did undergo a right hip trochanter ic bursa corticoste roid injection on ultrasound guidance. She tolerated this well for complicati on. Geri will ice and rest over the next week and gradually resume normal activities . I advised restarting her home physical therapy in 7-10 days. She was also given a prescripti on for topical diclofenac to use as needed for pain. She will follow up with me as needed for further care. [id number] Mikaela Andres MD , [facility], [address] [place] [address] 05/30/2023 16:55:06 05/31/2023 08:14:19 Upper respiratory infection 64569127 J06.9 Patient presents with symptoms consistent with viral infection. No evidence of pneumonia on exam. Discussed supportive care: pushing fluids, rest, nasal saline and Mucinex as needed. Encouraged to follow up if symptoms persist for more then 10 days or if they are worsening. Discussed natural course of viral illnesses and lack of evidence for treating with antibiotic s. [id number] Tanika Delacruz NP , [facility], [address] [place] [address] 06/15/2023 16:30:55 06/16/2023 12:32:20 Screening mammography 69031728 Z12.31 pt to schedule Elevated blood-pressure reading without diagnosis of hypertension 453387532 R03.0 Better on repeat and close to goal. Will start checking BP at home with spouse's cuff. Enc cont healthy diet/exerc ise habits, efforts at a little wt loss. Has [place] scheduled for the spring. Will f/u sooner if BP's running above goal at home. Reviewed goal of <130/80. Hypothyroidism 75413864 E03.9 TSH in good range in October - cont same dose Osteoarthritis 752599025 M19.90 Multiple joint issues. Hips/knees . Sees sports meds and currently no sx. Enc cont. to stay active, f/u prn worsening sx. [id number] Blank Galvin MD Sports Medicine, [address] [address] 10/08/2023 15:17:19 10/12/2023 14:46:58 Hip pain 54201367 M25.552 Geri is a 68-year-ol d female with left hip pain due to greater trochanter ic pain syndrome. I reviewed this diagnosis with her today as well as discussing treatment options both short and long-term. We discussed physical therapy, use of NSAIDs and Tylenol, and corticoste roid injections . Specifical ly we discussed evidence demonstrat ing that physical therapy is the superior treatment for producing long-term symptom relief. I did offer her referral to physical therapy which she declined. She feels cortisone injections have worked better for her previously would like to try that on her left hip. She did undergo a left hip trochanter ic bursa corticoste roid injection under ultrasound guidance. She tolerated this well without complicati on. She will ice and rest over the next week and gradually resume normal activities . I am of course happy to see her back as needed if she has worsening or persistent symptoms in the future. [id number] RILEY DANIEL DO FP, [facility], [address] [place] [address] 10/15/2023 17:02:09 10/16/2023 12:02:38 Increased blood pressure 08780821 R03.0 Counseled patient on avoidance of NSAIDsLow sodium diet < 2000 mg/dayMoni tor BP at home and maintain log book readings for review at appointmen t. Your blood pressure was elevated today (higher than 140/90). Please follow up by scheduling an appointmen t in the Blood Pressure clinic within 2 weeks.Peg ent agreeable to initiating lisinopril 10 mg daily. [id number] WERO Bose, [facility], [address] [place] [address] 11/02/2023 13:35:28 11/05/2023 15:09:10 Benign essential hypertension 1434954 I10 At goal. Enc. continue current meds, healthy diet/exerc ise habits and f/u as planned for [place] in November Obesity 094218652 E66.9 Chronic issue - can't seem to lose. Now exercising more which is keeping her from gaining. Enc. healthy diet and continue to remain active and f/u prn Hypothyroidism 05349437 E03.9 due for TSH - will get today with lipids - had alot of other labs including BMP drawn recently at [facility] Osteoarthritis 294036002 M19.90 Multiple joint issues. Hips/knees . Sees rheumatolo gy - will get consult notes/lab results from [facility] [id number] WERO Bose, [facility], [address] [place] [address] 12/21/2023 15:58:17 12/21/2023 16:51:01 Adult health examination 769758643 Z00.00 see Risk Assessment and Lifestyle Change Counseling section above Depression screening 171 344946 Z13.31 depression screening tool administer ed Screening for alcohol abuse 359959731 Z13.39 Alcohol use screening tool administer ed Hypothyroidism 11616200 E03.9 TSH in good range - continue same dose meds Type 2 destiyn betes mellitus 52712304 E11.9 New dx - had IFG x years - now with A1C 6.5, FBS 144. Reviewed that this is early - could get sugars back in normal range with diet/exerc ise and low dose metformin. Rx sent as below. Take as directed. Watch intake of carbs/swee ts/sweet drinks/jui ritu. Work on exercising regularly. Will repeat labs prior to med mgt visit in 6 mos. Consider home blood sugar monitoring if sugars not improving and/or referral to diabetic ed classes. Joint pain 48292512 M25. 50 Followed by rheum. Hearing loss worsened after on some medication for her joint pain sx. Doesn't want to restart meds for this. Enc work on wt loss which has been helpful in the past. Cont. regular exercise and f/u prn worsening sx Osteoarthritis 080027899 M19.90 Multiple joint issues. Hips/knees . Sees rheumatolo gy - will get consult notes/lab results from [facility] Obesity 423146015 E66.9 Chronic issue - can't seem to lose. Now exercising more which is keeping her from gaining. Enc. healthy diet and continue to remain active and f/u prn Reviewed that metformin can help some with wt loss [id number] MALATHI Seymour , [facility], [address] [place] [address] 12/31/2023 10:53:54 12/31/2023 17:44:02 Type 2 diabetes mellitus 83453799 E11.9 a1c recently 6.5 and started on metformind iscussed diarrhea as s/e but fever no relatedoka y to decrease back to 1 tab daily then increase to 2 tabs when above symptoms resolvecan start home glucose checksf/u with PCP Nausea, vo miting and diarrhea 1028976 R11.2 starting with diarrhea sundaycovi d neg o9ccixjnng ng fever resolved and symptoms improvinga gree suspect related to meal she has and stomach was not used to; reassuranc e givenrec continue increased fluids, try increasing electrolyt es, bland diet then increase as toleratedc all as needed Elevated blood-pressure reading without diagnosis of hypertension 351685125 R03.0 goal <130/80 averagecon tinue home monitoring reassess once feeling better [id number] RILEY DANIEL DO , [facility], [address] [place] [address] 07/07/2024 11:40:31 07/08/2024 08:03:47 Type 2 diabetes mellitus 76824420 E11.9 A1c of 6.0. On Metformin for weight loss. Discussed potential use of GLP-1 agonists for weight loss. Patient interested in dietary counseling .-[facility]Sta rt B12 supplement ation due to potential depletion from Metformin use.-Consi antoine GLP-1 agonists if dietary counseling is not effective. -Follow up in 3 months to reassess. Hypothyroidism 52085822 E03.9 continue current dose of levothyrox ine (75 mcg daily). Repeat yearly TSH level. Bilateral cataracts 9572 2003 H26.9 CataractSu rgery scheduled for August 28. Patient has experience d eye bleeds and vision loss. On two eye drops.-Pre operative clearance early August.- Continue current eye medication s. [id number] RILEY DANIEL DO [facility], [address] [place] [address] 08/12/2024 11:29:42 08/12/2024 12:04:28 Type 2 diabetes mellitus 19723408 E11.9 A1c of 6.0. On Metformin for weight loss. Discussed potential use of GLP-1 agonists for weight loss. Patient interested in dietary counseling .-[facility]Sta rt B12 supplement ation due to potential depletion from Metformin use.-Consi antoine GLP-1 agonists if dietary counseling is not effective. -Follow up in 3 months to reassess. Cough 03517588 R05.9 flu positive > 1 week ago with ongoing cough. Rule out post-viral PNA.Persis tent cough for five days post-viral illness with bronchi in upper left lobe suggesting post-viral inflammati on. Chest X-ray warranted. - Order chest X-ray to evaluate underlying pathology. Symptomati c treatment with flonase daily x 3 days and cough suppressan t medication such as dextrometh orphan (robitussi n). If symptoms fail to improve and/or patient develops sob, f/c/s, then she should reach back out to our office for further recommenda tions/care . Pre-surger y evaluation 792888335 Z01.818 Preoperati ve evaluation for eye surgery Preparing for eye procedure on August 28. Preoperati ve labs reviewed; no additional labs needed. Instructio ns given to hold blood thinners, aspirin, NSAIDs, fish oil, and turmeric for five to seven days prior.- Send preoperati ve labs and notes to ophthalmol ogist for surgical clearance. - Ensure adherence to preoperati ve instructio ns. Patient is medically optimized at this time and can proceed with surgery.Lo w risk procedureN o changes in activity tolerance. No s/sx angina or fluid overload/h eart failure. No hx of cardiac arrhythmia . Has previously tolerated general anesthesia without incident.N ot on any AC or antiplatel et tx, not taking a daily aspirin. May stop all NSAIDs 3-7 days prior to surgery if necessary. No personal history of CHF, ME, or TIA/CVA. 30-day risk of , ME, or cardiac arrest 3.9% per the Revised Cardiac RIsk Index for Pre-Operat francisco Risk. Patient is at low risk of perioperat francisco cardiopulm onary complicati ons of a low to moderate non-cardia c risk surgery. 10 year ASCVD risk 5.7%. I expect this patient to tolerate the planned procedures well at her current state of health. She can proceed without further risk stratifica tion. [id number] RILEY DANIEL DO , [facility], OFFICE [address] [place] [address] 08/16/2024 10:25:17 08/20/2024 17:16:07 Acute bacterial bronchitis 172023489 J20.9 Persistent fever post-influ dali, minimal cough, clear chest X-ray. Suspected post-viral bronchitis with potential bacterial component. - Prescribed doxycyclin e 100 mg BID for 7 days with food.- Prescribed inhaler for respirator y support.Sy mptomatic treatment with flonase daily x 3 days and cough suppressan t medication such as dextrometh orphan (robitussi n). If symptoms fail to improve and/or patient develops sob, f/c/s, then she should reach back out to our office for further recommenda tions/care . Type 2 destiny betes mellitus 13003098 E11.9 Recent metformin dosage adjustment due to diarrhea.- Continue current metformin regimen as tolerated. Health Concerns Section Related Observation LastModified by Organization Detai ls LastModified Time None Recorded Concern Status LastModified by Organization Details LastModified Time None Recorded Advance Directives Directive Y: Kerline Campbell, Payers Encounter Date Sequence Insurance Name Policy Number Policy Zamarripa Covered Member ID Zamarripa Member ID Guarantor Name 12/21/2023 1 [facility] [id number] Geri Tolbert [id number] Geri Tolbert 07/07/2024 1 [place] [employer] Geri Tolbert [id number] Geri Tolbert 07/07/2024 2 [employer] (MEDICARE SUPPLEMENT) Geri Tolbert [id number] Geri Tolbert 08/12/2024 1 [place] [employer] [employer] Geri Tolbert [id number] Geri Tolbert 08/12/2024 2 [employer] (MEDICARE SUPPLEMENT) Geri Tolbert [id number] Geri Tolbert 08/16/2024 1 [place] [employer] [employer] Geri Tolbert [id number] Geri Tolbert 08/16/2024 2 [employer] (MEDICARE SUPPLEMENT) Geri Tolbert [id number] Geri Tolbert Notes Date Note Type Note Provider Name and Address Organization Details Recorded Time 4 text/html Physical Exam/FemaleReported bypatient.PHAPatient is here for a Wellness Visit. She describes her health status as good. Patient's health is better than last year.Risk Assessment and Lifestyle Change Counseling (Medicare)Reported bypatient.Safety Risk Assessment:Has grab bars in bathroom; Has rails on steps; No falls Functional Status:Patient has trouble hearing the television or radio when others do not.(has hearing aide in right ear & left ear has severe loss of hearing.); Patient does not need help with preparing meals, transportation, shopping, taking medicine, managing finances, or other activities of daily living.; Patient does not have visual loss that interferes with daily activities; Does not live alone; Patient was not unsteady and did not take longer than 30 seconds during the timed get up and go test.; Patient reports no falls in the past 6 months. Diet:Counseled about appropriate portion size; Counseled about eating a diet low in trans and saturated fats and high in fiber, fruits and vegetables; Discussed the value of a Mediterranean diet , and eating more fruits and vegetables Exercise counseling:Discussed the importance of daily physical activity; Discussed the importance of weight bearing exercise Safety:Counseled about protecting skin from the sun and lowering the risk of skin cancer; Counseled about fall risk from throw rugs and the need for hand rails on steps and in bath Patient is here today for Annual Wellnessno concerns colonoscopy - 2021 - 5 yr recallmammo 10/23 Tanika Delacruz NP [address] [place], [address], [facility] 12/22/2023 08:01:35 4 text/html 12/31/23- VV N/V/Dreports diarrhea on fri, thought it was related to what she ate (hamburger, potato salad, macaroni; usually only has yogurt w/ nuts)yesterday felt worse, started at 3pm with N/V/D, fever 100.8F at 3am, currently 99.8F about an hour agoBP 168/99, 85; 142/95, 83 this amfeels dehydrated, eyes hurt, headache, diarrhea again this am but no vomitinghasn't tried to eat much yet this morning, has been able to tolerat liquidssat night started with 2 metformins daily, doesn't seem relateddoes not have glucometercovid neg yesterday and this am Patient reports vomiting and diarrhea since yesterday also has fever. Covid negative last night, encouraged retesting. Patient reports she has been able to keep water down and is still urinating. Patient endorsing headache and eye pain. Denies visual changes. Patient reports dry eyes and dry mouth. Encouraged patient to continue to hydrate. Patient denies SOB/chest pain. Reports some dizziness and light headedness with ambulation. Additionally patient recently started on Metformin. MALATHI Seymour [address] [place], [phone], [facility] 12/31/2023 11:56:38 5 text/html 07/07/24- Pt here today for a follow up visitfirst time seeing Dr Daniel as PCPDiscuss medicationreferral to a nutritionistDiscuss left shoulder injury, will be starting physical therapy. History of Present IllnessThe patient, with a history of diabetes, presents for a follow-up appointment. She expresses frustration with unsuccessful weight loss attempts despite dietary changes and regular gym workouts. She has been on metformin for about six months, which was initiated with the hope of aiding weight loss. However, the patient reports gaining a couple of pounds since starting the medication.The patient also reports a work-related rotator cuff injury and is currently going through worker's compensation for it. She plans to start physical therapy in the next couple of weeks.In addition, the patient is scheduled for cataract surgery in August. She has experienced loss of sight twice in the past year due to what she describes as an eye bleed. She is currently on two eye drops for this issue, but the cause is still being investigated.Recently, the patient has noticed an increase in stumbling and tripping, which she finds concerning given her previous good balance. She is unsure if this is related to her eye issues or another underlying problem.The patient also mentions a desire to see a acoustic engineer for dietary counseling related to her diabetes. She reports not drinking alcohol, having stopped caffeine, not eating a lot of sweets or food in general, and having small portion sizes. RILEY DANIEL, DO [address] [place] [address], [phone], [facility] 07/07/2024 13:34:55 5 text/html Pre op physical. Cataract surgery with [facility].. Fax note when closed. Recent Flu-like illness with fever for 7 day. Not covid. Still has cough. History of Present IllnessThe patient, with a history of diabetes and vision loss, presents for a physical exam prior to an upcoming eye surgery. She has been experiencing a persistent cough for about five days, along with congestion. She reports a fever that lasted for seven days, which broke recently. She has been feeling extremely thirsty, which she attributes to the fever. She also reports some chest pressure, which she believes is due to being ill for a prolonged period. She has been taking extra eye drops due to experiencing vision loss in one eye twice. She is considering switching from metformin to an injectable medication for her diabetes after the eye surgery. RILEY DANIEL DO [address] [place] [address], [phone], [facility] 08/12/2024 13:44:57 5 text/html pt presents for Persistent fever, reports she is on day 11 or 12 of sx following positive flu test. Saw 08/12/24 and had normal CXR. Reports still has cough. Reports since she saw had 1 fever last night of 101.4. Reports afebrile currently. Reports cough is not productive but feels like she has chest congestion. History of Present IllnessThe patient, with a history of flu two weeks ago, presents with persistent fevers that subside with Tylenol but return once the medication wears off. The fevers have been ongoing since the patient's flu episode, with a brief period of relief before returning. The patient reports feeling generally unwell and fatigued, with some difficulty maintaining balance. They also report a slight headache and a previous episode of diarrhea, which has since resolved. The patient denies any significant phlegm production or sore throat. They have tested negative for COVID-19. The patient has been managing their symptoms with Tylenol, Mucinex, and breathing exercises as advised by a nurse. They have also reduced their metformin dosage due to its potential side effects. RILEY DANIEL DO [address] [place] [address], [phone], [facility] 08/16/2024 12:17:36 OBGyn Episode No OBEpisode recorded.
--- OUTSIDE RECORDS SUMMARY | 2024-09-09 11:30 | XMS_ITS | Continuity of Care Document ---
Author Organization [facility], , [facility], OFFICE Address [address] [place] [address] Care Team Providers Care Asphalt Dauber Name Role Phone CAROLINA CERNA RE[facility]AB Physical Therapist KERLINE MICHAELS Core Worker [phone] AMADEO ORTEZ Residential Supervisor KIMBERLY LAM Roll Mill Operator ELVIS ADLER Dog Or Animal Sitter DANNY GALVIN Sports Medicine [address] DANIEL Primary Care Provider [phone] PRANEETH IYER Medical Safety Director Assessment Encounter Date Assessment Date Assessment LastModified by Organization Details LastModified Time 08/16/2024 08/16/2024 flu positive > 1.5 week ago with ongoing cough. Rule out post-viral PNA. [email or web address] Not available 08/16/2024 12:17:24 Plan of Treatment Reminders Order Date Submit Date Provider Last Modified By Organization Details Last Modified Time Details Appointments Medica l Manage ment 15 2024 03:00P M LANE DANIEL, DO Not available Not available Not available New Jazmyn t-60 2024 11:00A M Rupinder Orr RDN Not available Not available Not available Follow Up, 30 2024 04:30P M L[address] DANIEL, DO Not available Not available Not available Mammog mejia, Screen ing 2024 03:30P M [facility] Mammography Not available Not available Not available LAB Follow -Up 2024 10:00A M [facility] Lab Not available Not available Not available Lynette ss Visit 30 2024 11:00A M L[address] DANIEL, DO Not available Not available Not available Lab None record ed. Referral None record ed. Procedures None record ed. Surgeries None record ed. Imaging None record ed. Medication Orders doxycy russo hyclat e 100 mg capsul e 2024 025 WILSEY [facility] [id number] ([facility] 827), [address], [place], [id number], 08/16/2024 10:58:36 albute rol sulfat e HFA 90 mcg/ac tuatio n aeroso l inhale r 2024 025 MEGHANN [facility] [address] ([facility]), [address], [place], [id number], 08/16/2024 10:58:34 Patient TargetsNo targets recorded. Patient InstructionsNo instructions recorded. Reason for Referral None Reported. Results Created Date Observation Date Name Description Value Unit Range Abnormal Flag Note LastModifiedBy Organization Detail LastModifiedTime 08/12/19 25 08/12/2024 XR, chest CLINIC AL [...] . IMPRES SWAPNIL: No acute diseas e. Readin g Physic cindy: Jayesh Kirkpatrick [address] (Imaging) [address], [place], [id number], 09/09/2024 08:29:59 Result Notes None recorded. Problems Name Problem SNOMED Code Status Onset Date Resolution Date Notes Provider Name and Address Organization Details Recorded Time Joint pain 27800740 Active 2017 Tanika Delacruz NP [address] [place] [address], [address] , [facility] 8 08:17:43 Osteoarthr itis 808156572 Active 2018 Chantal Parmar [place] null, [facility] 9 08:20:18 Type 2 diabetes mellitus 65253182 Active 2023 Tanika Delacruz NP [address] [place] [address], [address] , [facility] 4 16:34:30 Dyspnea 098975766 Completed 200207/25/2012 Not Available [facility] 3 03:10:02 Calcific tendinitis of shoulder 25252231 Completed 200207/25/2012 Not Available [facility] 3 03:10:02 Acute cystitis 27433764 Completed 200307/25/2012 Not Available [facility] 3 03:10:02 Allergic rhinitis 79359460 Completed 200107/25/2012 Not Available [facility] 3 03:10:02 Acute pharyngiti s 327840426 Completed 200107/25/2012 Not Available [facility] 3 03:10:02 Glucose level outside reference range 174944769 Completed 200407/25/2012 Not Available [facility] 3 03:10:02 Dizziness 648771316 Completed 200407/25/2012 Not Available [facility] 3 03:10:02 Bacterial pneumonia 05755512 Completed 200707/25/2012 Not Available [facility] 3 03:10:02 Hypermetro afia 87453006 Completed 200507/25/2012 Not Available [facility] 3 03:10:02 Pain in throat 350441810 Completed 200607/25/2012 Not Available [facility] 3 03:10:02 Pneumonia 015932087 Completed 200207/25/2012 Not Available [facility] 3 03:10:02 Joint pain 08896506 Completed 200207/25/2012 Tanika Delacruz NP [address] [place] [address], [address] , [facility] 8 08:17:43 Acute maxillary sinusitis 59236931 Completed 200107/25/2012 Not Available [facility] 3 03:10:02 Transient insomnia 561501581 Completed 200707/25/2012 Not Available [facility] 3 03:10:02 Borderline glaucoma Completed 200507/25/2012 Not Available [facility] 3 03:10:02 Acute bronchitis 15840963 Completed 200207/25/2012 Not Available [facility] 3 03:10:02 Malaise and fatigue 540702382 Completed 200207/25/2012 Not Available [facility] 3 03:10:02 Inflammato ry disorder of extremity 133702242 Completed 200007/25/2012 Not Available [facility] 3 03:10:02 Disorder of tendon of shoulder region 29050303 Completed 200207/25/2012 Not Available [facility] 3 03:10:02 Cough 29244601 Completed 200107/25/2012 Not Available [facility] 3 03:10:02 Plantar fasciitis 390064395 Completed 200007/25/2012 Not Available [facility] 3 03:10:02 Syncope and collapse 150667052 Completed 200707/25/2012 Not Available [facility] 3 03:10:02 Joint pain in ankle and foot Completed 200307/25/2012 Not Available [facility] 3 03:10:02 Obesity 632015374 Active 2007 Elvis Adler MD [address] [place] [address], [address] , [facility] 6 15:23:56 Finding by method 775071328 Completed 200407/25/2012 Not Available [facility] 3 03:10:02 Common cold 17742197 Completed 200307/25/2012 Not Available [facility] 3 03:10:02 Staphyloco ccal infectious disease 34417544 Completed 200607/25/2012 Not Available [facility] 3 03:10:02 Abnormal weight loss 333668844 Completed 200707/25/2012 Not Available [facility] 3 03:10:02 Insect bite to trunk - nonvenomou s 448410346 Completed 200707/25/2012 Not Available [facility] 3 03:10:02 Insect bite, nonvenomou s, of shoulder 058428601 Completed 07/25/2012 Not Available [facility] 3 03:10:02 Low back pain 384860543 Completed 200007/25/2012 Not Available [facility] 3 03:10:02 Hypothyroi dism 18679266 Active 2002 Elvis Adler MD [address] [place] [address], [address] , [facility] 6 15:23:56 Streptococ anna sore throat 88598182 Completed 200307/25/2012 Not Available [facility] 3 03:10:02 Pain in limb 04987317 Completed 200307/25/2012 Not Available [facility] 3 03:10:02 Viral upper respirator y tract infection 100049004 Completed 200607/25/2012 Not Available [facility] 3 03:10:02 Notes:Some problems listed i n Documents: #[id number], #[id number] could not be added to this patient's chart. Please review these documents and add these problems to the patient's chart manually as needed. Problem Notes None recorded. Procedures Surgical History Date Name Laterality Status Provider Name and Address Organization Details Recorded Time 10/08/19 24 Trochanteric Bursa Injection completed Danny Galvin MD [address] [address], [phone], [facility] 10/08/2023 16:17:42 01/11/20 23 Trochanteric Bursa Injection completed Danny Galvin MD [address] [address], [address], [facility] 01/10/2023 16:12:59 12/16/19 23 Medicare Wellness Visit completed Ron Azul MA [facility] 12/15/2022 09:01:17 12/15/19 23 US Guided Knee Joint Injection completed Danny Galvin MD [address] [place], [address], [facility] 12/14/2022 13:36:30 04/07/20 22 Tassoni - Colonoscopy completed Amadeo Ortez MD [address] [address], [address], [facility] 04/07/2022 12:22:37 04/07/20 22 Tassoni - EGD completed Amadeo Ortez MD [address] [address], [address], [facility] 04/07/2022 12:21:41 11/26/19 22 prevention-cardi ovascular risk reduction counseling completed Tanika Delacruz NP [address] [place], [address], [facility] 11/25/2021 16:50:47 11/26/19 22 prevention-annua l alcohol misuse screening completed Tanika Delacruz NP [address] [place], [address], [facility] 11/25/2021 16:50:50 08/08/19 22 53257: Therapeutic Exercise completed Shawna Parker, PT [address] [place], [address], [facility] 08/08/2021 18:36:17 08/08/19 22 Treatment and Advice completed Shawna Parker, PT [address] [place], [address], [facility] 08/08/2021 18:33:10 08/05/19 22 Physical Activity Counselling completed Shawna Parker, PT [address] [place], [address], [facility] 08/05/2021 08:21:28 08/05/19 22 14576: PT Eval Low Complexity completed Shawna Parker, PT [address] [place], [address], [facility] 08/05/2021 08:21:24 08/05/19 22 Treatment and Advice completed Shawna Parker, PT [address] [place], [address], [facility] 08/05/2021 16:39:59 08/26/19 21 prevention-cardi ovascular risk reduction counseling completed Ron Azul MA [facility] 08/26/2020 08:39:25 08/26/19 21 prevention-annua l alcohol misuse screening completed Ron Azul [facility] 08/26/2020 08:39:25 03/29/20 18 85492: Therapeutic Exercise completed Nelson Devi, PT [address] [place], [address], [facility] 04/03/2018 19:36:37 03/29/20 18 Treatment and Advice completed Nelson Devi, PT [address] [place], [address], [facility] 03/29/2018 17:09:53 03/22/20 18 94749: Therapeutic Exercise completed Nelson Devi, PT [address] [place], [address], [facility] 03/22/2018 15:37:32 03/22/20 18 Treatment and Advice completed Nelson Devi, PT [address] [place], [address], [facility] 03/22/2018 16:02:03 03/08/20 18 83337: Therapeutic Exercise completed Nelson Devi, PT [address] [place], [address], [facility] 03/08/2018 16:57:34 03/08/20 18 Treatment and Advice completed Nelson Devi, PT [address] [place], [address], [facility] 03/08/2018 16:59:44 03/01/20 18 56672: Therapeutic Exercise completed Nelson Devi, PT [address] [place], [address], [facility] 03/04/2018 17:17:06 03/01/20 18 Treatment and Advice completed Nelson Devi, PT [address] [place], [address], [facility] 03/01/2018 16:41:51 02/20/20 18 Physical Activity Counselling completed Nelson Devi, PT [address] [place], [address], [facility] 02/19/2018 09:35:29 02/20/20 18 54325: PT Eval Low Complexity completed Nelson Devi, PT [address] [place], [address], [facility] 02/19/2018 09:35:29 02/20/20 18 Treatment and Advice completed Nelson Devi, PT [address] [place], [address], [facility] 02/19/2018 10:07:34 07/12/19 17 POC Strep Testing completed Lotus Howell [facility] 07/12/2016 11:14:53 06/22/20 15 Refraction completed Aviva Garcia [facility] 06/22/2015 16:17:57 Imaging Results None recorded. Procedure Notes None recorded. Medical Equipment None Reported. Allergies Allergen ID Allergen Name Allergen Category Reaction Reaction Severity Criticality Documentation Date Start Date Code Code System Note Provider Name and Address Organization Details Recorded Time 890029 Roxicet medicatio n Not available Not available Not available 11/17/2022 90910 9 RxNorm think s it cause d her to go deaf [facility] 3 15:37:59 8644 Product containin g penicilli n (product) medicatio n rash Not available Not available 10/13/2008 16027 8001 SNOMED Not Available [facility] 1 06:05:20 [...] MUSCLE SPASM. DO NOT DRIVE OR OPERATE NokoriR [employer] FOR 8 HOURS AFTER TAKING THIS MEDICINE [...] Available Not Available Not Available Fluarix Quad 2155-6256 (PF) 60 mcg (15 mcg x 4)/0.5 mL IM syringe inject 0.5 millilit er intramus cularly 05/02 completed Not Available Not Available Not Available Afluria 5429-0191 (PF) 45 mcg(15 mcg x 3)/0.5 mL intramusc ular syringe 08/10 completed Not Available Not Available Not Available Vitals Date Recorded Body height Oxygen saturation Oxygen saturation in Arterial blood by Pulse oximetry Heart rate Body temperature Systolic blood pressure Diastolic blood pressure Provider Name and Address Organization Details Last Updated DateTime 5 162.56 cm 98 % 98 % 68 /min 97.6 [degF] 102 mm[Hg] 60 mm[Hg] Soy Silva MA [facility] 5 10:40:52 Social History Question Answer Notes LastModified by Organizat ion Details LastModified Time Tobacco Smoking Status Never Smoker DEBO Cramer, [facility] 10/31/2022 16:40:50 Do You Have An [...] Or The Highest Degree You Have Received? [id number] Information not available 12/15/2022 What Is Your Occupation? [employer] [id number] Information not available 05/18/2011 Have [...] Td(adult) unspecified formulation 3 completed Not Available [facility] 05/17/2011 05:21:07 influenza, seasonal, intradermal, preservative free 3 completed Not Available [facility] 07/19/2019 02:34:58 influenza, unspecified formulation 0 completed Not Available [facility] 05/17/2011 05:22:41 influenza, unspecified formulation 5 completed [facility] 03/19/2015 11:13:00 Influenza, split virus, quadrivalent, PF 8 completed Not Available [facility] 07/19/2019 02:23:00 Influenza, split virus, quadrivalent, preservative 6 completed [facility] 03/31/2016 08:06:25 Influenza, split virus, quadrivalent, preservative 7 completed [facility] 03/26/2017 08:31:47 Influenza, split virus, quadrivalent, PF 0 completed Neyda Vasquez MA [facility] 07/24/2019 16:38:21 Influenza, split virus, quadrivalent, PF 0 completed Brie Graham RN [facility] 05/24/2020 15:44:55 Influenza, split virus, quadrivalent, PF 1 completed [facility] 06/17/2021 16:03:30 COVID-19, mRNA, LNP-S, PF, 30 mcg/0.3 mL dose 1 completed [facility] 08/26/2020 09:28:36 COVID-19, mRNA, LNP-S, PF, 30 mcg/0.3 mL dose 1 completed [facility] 08/26/2020 09:29:14 Td (adult), 5 Lf tetanus toxoid, preservative free, adsorbed 3 completed Tanika Delacruz, WERO [address] [place], [address], [facility] 09/02/2022 09:58:56 Tdap 0 completed Not Available [facility] 07/19/2019 02:36:32 zoster recombinant 2 completed [facility] 11/18/2021 16:28:46 COVID-19, mRNA, LNP-S, PF, 30 mcg/0.3 mL dose 1 completed [facility] 11/25/2021 16:10:24 zoster recombinant 2 completed [facility] 09/01/2022 15:47:57 Past Encounters Encounter ID Performer Location Encounter Start Date Encounter Closed Date Diagnosis/Indication Diagnosis SNOMED-CT Code Diagnosis ICD10 Code Diagnosis Note [id number] DO JEREMIE MADRID, [facility], OFFICE [address] [place] [address] 08/12/2024 11:29:42 08/12/2024 12:04:28 Type 2 diabetes mellitus 50178048 E11.9 A1c of 6.0. On Metformin for weight loss. Discussed potential use of GLP-1 agonists for weight loss. Patient interested in dietary counseling .-Refer to in-house nutritioni st, Rupinder Jimenez.-Sta rt B12 supplement ation due to potential depletion from Metformin use.-Consi antoine GLP-1 agonists if dietary counseling is not effective. -Follow up in 3 months to reassess. Cough 87146816 R05.9 flu positive > 1 week ago [...] further recommenda tions/care . Pre-surger y evaluation 288879032 Z01.818 Preoperati ve evaluation for eye surgery [...] if necessary. No personal history of CHF, [place], or TIA/CVA. 30-day risk of , [place], or cardiac arrest 3.9% per the Revised [...] can proceed without further risk stratifica tion. [id number]ANIEL, , [facility], OFFICE [address] [place] [address] 08/16/2024 10:25:17 08/20/2024 17:16:07 Acute bacterial bronchitis 953489958 J20.9 Persistent fever post-influ dali, minimal cough, [...] tions/care . Type 2 destiny betes mellitus 87664578 E11.9 Recent metformin dosage adjustment due to diarrhea.- Continue current metformin regimen as tolerated. Health Concerns Section Related Observation LastModified by Organization Detai ls LastModified Time None Recorded Concern Status LastModified by Organization Details LastModified Time None Recorded Payers Encounter Date Sequence Insurance Name Policy Number Policy Zamarripa Covered Member ID Zamarripa Member ID Guarantor Name 08/16/2024 1 MEDICARE B-[place]: [employer] Geri Tolbert [id number] Geri Tolbert 08/16/2024 2 [facility] [employer] (MEDICARE SUPPLEMENT) Geri Tolbert [id number] Geri Tolbert Notes Date Note Type Note Provider Name and Address Organization Details Recorded Time 08/16/2024 text/html pt presents for Persistent fever, reports [...] dosage due to its potential side effects. LANE DANIEL, DO [address] [place] [address], [address], [facility] 08/16/2024 12:17:36 OBGyn Episode No OBEpisode recorded.
== END 2024-09-09 09:58 | disposition home or self-care (01) ==
LOC: HO.MRI 09:57
PROVIDERS: PCP Internal Medicine Nephrology; Visit Provider Internal Medicine
DX: M84.81 Other disorders of continuity of bone, shoulder (principal)
CPT/HCPCS: 73221

== ENCOUNTER → 2024-09-09 10:15 | Outpatient (BNV) | payer OTHER, SELFPAY | PROVIDERS: PCP Internal Medicine Nephrology; Visit Provider Radiology Diagnostic Radiology | DX: M67.812 Other specified disorders of synovium, left shoulder (principal); M19.012 Primary osteoarthritis, left shoulder | CPT/HCPCS: 73221 ==

== ENCOUNTER → 2024-09-19 14:01 | Outpatient (BNVA) | payer OTHER, SELFPAY | PROVIDERS: PCP Internal Medicine Nephrology; Visit Provider Physician Assistant Medical | DX: M24.812 Other specific joint derangements of left shoulder, not elsewhere classified (principal); S46.912D Strain of unspecified muscle, fascia and tendon at shoulder and upper arm level, left arm, subsequent encounter; X50.3XXD Overexertion from repetitive movements, subsequent encounter | CPT/HCPCS: 99213 ==

== ENCOUNTER → 2024-10-24 14:01 | Outpatient (BNVA) | payer OTHER, SELFPAY | PROVIDERS: PCP Internal Medicine Nephrology; Visit Provider Physician Assistant Medical | DX: M24.812 Other specific joint derangements of left shoulder, not elsewhere classified (principal); M67.814 Other specified disorders of tendon, left shoulder | CPT/HCPCS: 99213 ==

== ENCOUNTER → 2024-11-14 13:46 | Outpatient (BNVA) | payer OTHER, SELFPAY | PROVIDERS: PCP Internal Medicine Nephrology; Visit Provider Physician Assistant Medical | DX: M24.812 Other specific joint derangements of left shoulder, not elsewhere classified (principal); S46.912D Strain of unspecified muscle, fascia and tendon at shoulder and upper arm level, left arm, subsequent encounter; X50.3XXD Overexertion from repetitive movements, subsequent encounter | CPT/HCPCS: 99213 ==

== ENCOUNTER → 2024-12-15 13:47 | Outpatient (BNVA) | payer OTHER, SELFPAY | PROVIDERS: PCP Internal Medicine Nephrology; Visit Provider Physician Assistant Medical | DX: M24.812 Other specific joint derangements of left shoulder, not elsewhere classified (principal); M75.102 Unspecified rotator cuff tear or rupture of left shoulder, not specified as traumatic; S43.492D Other sprain of left shoulder joint, subsequent encounter; X50.3XXD Overexertion from repetitive movements, subsequent encounter | CPT/HCPCS: 99213 ==

== ENCOUNTER → 2025-01-12 11:41 | Outpatient (BNVA) | payer OTHER, SELFPAY | PROVIDERS: PCP Internal Medicine Nephrology; Visit Provider Physician Assistant Medical | DX: M24.812 Other specific joint derangements of left shoulder, not elsewhere classified (principal); M67.813 Other specified disorders of tendon, right shoulder; S46.912D Strain of unspecified muscle, fascia and tendon at shoulder and upper arm level, left arm, subsequent encounter; X50.3XXD Overexertion from repetitive movements, subsequent encounter | CPT/HCPCS: 99213 ==

== ENCOUNTER → 2025-02-23 11:22 | Outpatient (BNVA) | payer OTHER, SELFPAY | PROVIDERS: PCP Internal Medicine Nephrology; Visit Provider Physician Assistant Medical | DX: S46.912D Strain of unspecified muscle, fascia and tendon at shoulder and upper arm level, left arm, subsequent encounter (principal); X50.3XXD Overexertion from repetitive movements, subsequent encounter | CPT/HCPCS: 99213 ==